=== PATIENT | male | born 1990 | race African-American/Black ===

== ENCOUNTER 2019-07-21 08:36 | Emergency (ER) | payer MEDICAID ==
[~2019-07-21] VITALS: Ht 177.8 cm; Wt 86.2 kg
[2019-07-21 08:50] VITALS: BP 146/83
== END 2019-07-21 09:53 | disposition home or self-care (01) ==
LOC: ER 08:40
DX: S06.9X9A Unspecified intracranial injury with loss of consciousness of unspecified duration, initial encounter (principal); F17.210 Nicotine dependence, cigarettes, uncomplicated; W22.8XXA Striking against or struck by other objects, initial encounter; Y93.89 Activity, other specified; Y92.149 Unspecified place in prison as the place of occurrence of the external cause; Y99.8 Other external cause status
CPT/HCPCS: 70450

== ENCOUNTER 2021-03-13 18:47 | Emergency (ER) | payer MEDICAID ==
[~2021-03-13] VITALS: Ht 182.9 cm; Wt 97.5 kg
[2021-03-13 22:18] LABS: Basophils # (auto) 0 10 ^3/uL (0-0.2); Basophils % (auto) 0.6 % (0.0-2.0); Eosinophils # (auto) 0.1 10 ^3/uL (0-0.8); Eosinophils % (auto) 0.8 % (0.0-7.0); Hematocrit 43.6 % (41.0-53.0); Hemoglobin 14.9 g/dL (13.5-17.5); Lymphocytes # (auto) 2.2 10 ^3/uL (0.4-5.4); Lymphocytes % (auto) 33.4 % (10.0-50.0); Mean Corpuscular Hemoglobin 31.3 pg (28.0-32.0); Mean Corpuscular Hgb Conc. 34.1 g/dL (32.0-36.0); Mean Corpuscular Volume 91.8 fL (80.0-100.0); Monocytes # (auto) 0.5 10 ^3/uL (0-1.3); Monocytes % (auto) 6.8 % (0.0-12.0); Neutrophils # (auto) 3.9 10 ^3/uL (1.6-8.6); Neutrophils % (auto) 58.4 % (37.0-80.0); Nucleated Red Blood Cells % 0.1 %; Platelet Count (auto) 307 10^3/uL (140-450); Red Blood Cells 4.75 10^6/uL (4.5-5.90); Red Cell Distribution Width 13.2 % (11.8-14.3); White Blood Cell 6.7 10^3/uL (4.4-10.8)
[2021-03-13 22:39] LABS: Alanine Aminotransferase 51 U/L (16-61); Anion Gap 7 (5-15); Aspartate Aminotransferase 32 U/L (15-37); BUN/Creatinine Ratio 6.5; Blood Alcohol < 3.0 mg/dL (0-5); Blood Urea Nitrogen 9 mg/dL (7-18); Calcium 8.8 mg/dL (8.5-10.1); Carbon Dioxide 29 mmol/L (21-32); Chloride 103 mmol/L (98-107); GFR African American 78 mL/min; GFR Non-African American 64 mL/min; Glucose 141 mg/dL (74-106); Magnesium 2.5 mg/dL (1.6-2.6); Potassium 3.1 mmol/L (3.5-5.1); Sodium 139 mmol/L (136-145)
[2021-03-13 22:40] LABS: Salicylate < 1.7 mg/dL (2.8-20.0)
[2021-03-13 22:42] LABS: Alkaline Phosphatase 99 U/L (45-117); Bilirubin, Total 1.2 mg/dL (0.2-1.0); Total Protein 7.6 g/dL (6.4-8.2)
[2021-03-13 22:58] LABS: Acetaminophen < 2.0 ug/mL (10-30)
[2021-03-14 02:01] VITALS: BP 152/98
[2021-03-14 02:03] LABS: Urine Bacteria NONE SEEN /hpf (None Seen); Urine Blood Negative /uL (Negative); Urine Hyaline Cast FEW /lpf (0 - 2); Urine Mucus FEW (None Seen); Urine WBC 5 /hpf (0 - 3)
[2021-03-14] MEDS ORDERED: LORazepam 0.5 MG TAB PO ONE (05:15)
[2021-03-14 05:57] LABS: Amphetamine Screen, Urine POSITIVE (NEGATIVE); Barbiturate Scree,Urine NEGATIVE (NEGATIVE); Benzodiazephine Screen, Urine POSITIVE (NEGATIVE); Cannabinoid Screen, Urine POSITIVE (NEGATIVE); Cocaine Screen, Urine NEGATIVE (NEGATIVE); Opiate Scree,Urine NEGATIVE (NEGATIVE); Phencyclidine Screen, Urine NEGATIVE (NEGATIVE)
[2021-03-14] MEDS ORDERED: AMMONIA 0.33 ML INHALANT IN ONE (09:41)
[2021-03-14] MEDS ORDERED: FLUMAZENIL 0.1 MG/ML INJ 10ML MDV IV ONE (09:46)
== END 2021-03-14 06:18 | disposition still patient (30) ==
LOC: EDBD 18:47 → ER 18:47
DX: R46.89 Other symptoms and signs involving appearance and behavior (principal); R41.82 Altered mental status, unspecified; R45.1 Restlessness and agitation; F41.9 Anxiety disorder, unspecified; F31.9 Bipolar disorder, unspecified; F20.9 Schizophrenia, unspecified; Z20.822 Contact with and (suspected) exposure to COVID-19; Z59.0 Homelessness
CPT/HCPCS: 36415; 80053; 80307; 80320; 80329; 81001; 83735; 85025; 85049; 87426

== ENCOUNTER 2021-03-14 09:17 | Emergency (ER) | payer MEDICAID ==
[~2021-03-14] VITALS: Ht 182.9 cm; Wt 113.4 kg
[2021-03-14 09:41] VITALS: BP 152/88
[2021-03-14] MEDS ORDERED: FLUMAZENIL 0.1 MG/ML INJ 10ML MDV IV ONE (10:00)
[2021-03-14] MEDS ORDERED: SODIUM CHLORIDE 0.9% 1,000 ML IV ONE (10:00)
[2021-03-14 10:01] LABS: Basophils # (auto) 0.1 10 ^3/uL (0-0.2); Basophils % (auto) 1.6 % (0.0-2.0); Eosinophils # (auto) 0.1 10 ^3/uL (0-0.8); Hematocrit 39.4 % (41.0-53.0); Hemoglobin 13.5 g/dL (13.5-17.5); Lymphocytes # (auto) 1.5 10 ^3/uL (0.4-5.4); Lymphocytes % (auto) 32.6 % (10.0-50.0); Mean Corpuscular Hemoglobin 31.2 pg (28.0-32.0); Mean Corpuscular Hgb Conc. 34.3 g/dL (32.0-36.0); Mean Corpuscular Volume 90.9 fL (80.0-100.0); Monocytes # (auto) 0.3 10 ^3/uL (0-1.3); Monocytes % (auto) 5.5 % (0.0-12.0); Neutrophils # (auto) 2.8 10 ^3/uL (1.6-8.6); Neutrophils % (auto) 58.3 % (37.0-80.0); Nucleated Red Blood Cells % 0.1 %; Red Blood Cells 4.33 10^6/uL (4.5-5.90); Red Cell Distribution Width 12.6 % (11.8-14.3); White Blood Cell 4.7 10^3/uL (4.4-10.8)
[2021-03-14 10:27] LABS: Calcium 8.5 mg/dL (8.5-10.1); Chloride 105 mmol/L (98-107); Potassium 3.5 mmol/L (3.5-5.1); Sodium 139 mmol/L (136-145)
[2021-03-14 10:33] LABS: Alanine Aminotransferase 45 U/L (16-61); Albumin 3.6 g/dL (3.4-5.0); Alkaline Phosphatase 88 U/L (45-117); Anion Gap 5 (5-15); Aspartate Aminotransferase 32 U/L (15-37); Bilirubin, Total 0.6 mg/dL (0.2-1.0); Blood Alcohol < 3.0 mg/dL (0-5); Blood Urea Nitrogen 15 mg/dL (7-18); Carbon Dioxide 29 mmol/L (21-32); GFR African American 96 mL/min; GFR Non-African American 79 mL/min; Glucose 106 mg/dL (74-106); Total Protein 6.9 g/dL (6.4-8.2)
== END 2021-03-14 10:09 | disposition left against medical advice (07) ==
LOC: EDBD 09:17 → ER 09:17
DX: G93.41 Metabolic encephalopathy (principal); F17.210 Nicotine dependence, cigarettes, uncomplicated
CPT/HCPCS: 36415; 80053; 80320; 85025; 85049; 96374; 99283; J7030

== ENCOUNTER 2024-11-13 01:21 | Inpatient (IN) | payer MEDICAID ==
[2024-11-13] VITALS (7 sets, daily range): BP systolic 129–136; BP diastolic 75–93; PULSE 75–86; RESP 15–18; TEMP 97.5–98.1; O2SAT 95–99
[~2024-11-13] VITALS: Ht 175.3 cm; Wt 87.5 kg
--- NOTE | 2024-11-13 03:10 | ED.PDOC ---
History of Present Illness HPI Comments 34 year old male who came to ER for dizziness. Patient is homeless, has history of anxiety, depression and schizophrenia. Has history of methamphetamine abuse. States for the past 2 hours he has been feeling dizzy with blurred vision and generalized weakness. Patient states he was asleep when he woke up suddenly feeling like this. Patient could not recall what happened earlier. He denies any recent drug or alcohol use. Chief Complaint: Dizziness Time Seen by MD: 03:09 Primary Care Provider: DARIO Reviewed Notes: Nurses Notes Allergies: Coded Allergies: UNOBTAINABLE (Unverified , 03/13/21) Information Source: Patient Mode of Arrival: Ambulatory Severity: Moderate Review of Systems REVIEW OF SYSTEMS: No fever, no chills, or fatigue HEENT: No sore throat, no earache, no congestion, no neck pain. Cardiac: No chest pain. No palpitations. Lungs: No shortness of breath, no cough. GI: No nausea, no vomiting, no diarrhea, no constipation, no abdominal pain : No dysuria, frequency, or urgency. No hematuria. Musculoskeletal: No joint pain , no joint swelling, no extremity edema. Skin: No rash, no itching. Neuro: No headache, (+) dizziness, (+) weakness Vital Signs Vital Signs Date Time Temp Pulse Resp B/P (MAP) Pulse Ox O2 Delivery O2 Flow Rate FiO2 11/13/24 05:08 16 95 Room Air* 0 21 11/13/24 05:00 82 144/94 (111) 11/13/24 04:31 97.3 97.3 Physical Exam General: Patient is speaking, slowly with slow/ slurred speech. He responds to verbal stimulation. Skin: Skin in warm, dry and intact. Appropriate color for ethnicity. Nailbeds pink with no cyanosis. HEENT: The head is normocephalic and atraumatic. Conjunctivae are clear without exudates or hemorrhage. Sclera is non-icteric. PERRLA. EOM are intact. No signs of nystagmus. Eyelids are normal in appearance without swelling or lesions. Oral mucosa is pink and moist Neck: The neck is supple with normal range of motion. No JVD. Cardiac: Heart rate and rhythm are normal. No murmurs, gallops, or rubs are auscultated. Respiratory: No signs of respiratory distress. Lung sounds are clear in all lobes bilaterally without rales, ronchi, or wheezes. Abdominal: Abdomen is soft, non-tender without distention. Bowel sounds are present and normoactive in all four quadrants. Extremities: Upper and lower extremities are atraumatic in appearance without deformity or edema. Neurological: The patient is awake, alert and oriented to person, place, and time with slow/slurred speech. Speech is easy to understand. There is no facial asymmetry. Patient is reporting generalized weakness stating he can not move his arms or legs however he was noted to ambulate to the registration desk in the lobby. Psychiatric: Appropriate mood and affect. Good judgement and insight. No visual or auditory hallucinations. Past Medical History PAST MEDICAL HISTORY: Anxiety, Depression, Schizophrenia Surgical History: Pt Confused Family History Family History: Pt Confused Social History Smoker: Cigarettes, Less Than 1 Pack/Day Alcohol: Occasionally Drugs: Methamphetamine Lives In: Homeless Was a procedure done? Was a procedure done?: No Differential Dx Considerations may include: Anemia, electrolyte imbalance, dehydration, substance abuse, homeless X-Ray, Labs, Meds, VS Vital Signs Date Time Temp Pulse Resp B/P (MAP) Pulse Ox O2 Delivery O2 Flow Rate FiO2 11/13/24 05:08 16 95 Room Air* 0 21 11/13/24 05:00 82 144/94 (111) 11/13/24 04:40 100 150/101 11/13/24 04:31 97.3 84 16 165/104 (124) 93 97.3 11/13/24 04:30 83 11/13/24 03:20 85 11/13/24 03:06 99.4 84 12 159/115 (130) 96 Lab Test 11/13/24 04:50 11/13/24 03:26 11/13/24 02:32 Range/Units Urine Color Yellow Yellow Urine Clarity Clear Clear Urine pH 5.5 5.0-9.0 Urine Specific [place] 1.028 1.001-1.035 Urine Protein Trace H Negative Urine Ketones 2+ H Negative Urine Blood Negative Negative /uL Urine Nitrite Negative Negative Urine Bilirubin Negative Negative Urine Urobilinogen Normal Negative mg/dL Urine Leukocyte Esterase Negative Negative /uL Urine RBC 1 0 - 3 /hpf Urine Microscopic WBC < 1 0-3 /HPF Urine Squamous Epithelial Cells None seen <5 /hpf Urine Bacteria None seen None Seen /hpf Urine Mucus Few None Seen Urine Glucose Normal Normal mg/dL Urine Opiates Screen Neg NEGATIVE Urine Fentanyl Screen Neg NEGATIVE Urine Barbiturates Screen Neg NEGATIVE Urine Phencyclidine Screen Neg NEGATIVE Urine Amphetamines Screen Pos NEGATIVE Urine Benzodiazepines Screen Neg NEGATIVE Urine Cocaine Screen Neg NEGATIVE Urine Cannabinoids Screen Pos NEGATIVE White Blood Count 6.9 4.4-10.8 10^3/uL Red Blood Count 4.93 4.5-5.90 10^6/uL Hemoglobin 15.2 13.5-17.5 g/dL Hematocrit 44.7 41.0-53.0 % Mean Corpuscular Volume 90.7 80.0-100.0 fL Mean Corpuscular Hemoglobin 30.9 28.0-32.0 pg Mean Corpuscular Hemoglobin Concent 34.1 32.0-36.0 g/dL Red Cell Distribution Width 13.1 11.8-14.3 % Platelet Count 308 140-450 10^3/uL Mean Platelet Volume 8.0 6.9-10.8 fL Neutrophils (%) (Auto) 64.8 37.0-80.0 % Lymphocytes (%) (Auto) 25.4 10.0-50.0 % Monocytes (%) (Auto) 8.0 0.0-12.0 % Eosinophils (%) (Auto) 1.2 0.0-7.0 % Basophils (%) (Auto) 0.6 0.0-2.0 % Neutrophils # (Auto) 4.5 1.6-8.6 10 ^3/uL Lymphocytes # (Auto) 1.8 0.4-5.4 10 ^3/uL Monocytes # (Auto) 0.6 0-1.3 10 ^3/uL Eosinophils # (Auto) 0.1 0-0.8 10 ^3/uL Basophils # (Auto) 0 0-0.2 10 ^3/uL Nucleated Red Blood Cells 0.0 % Sodium Level 137 136-145 mmol/L Potassium Level 3.5 3.5-5.1 mmol/L Chloride Level 102 98-107 mmol/L Carbon Dioxide Level 27 20-31 mmol/L Anion Gap 8 5-15 Blood Urea Nitrogen 12 9-23 mg/dL Creatinine 0.87 0.700-1.30 mg/dL Glomerular Filtration Rate Calc 116 >90 mL/min BUN/Creatinine Ratio 13.8 10.0-20.0 Serum Glucose 84 74-106 mg/dL Lactic Acid Level 2.1 *H 0.4-2.0 mmol/L Calcium Level 10.3 8.7-10.4 mg/dL Magnesium Level 2.4 1.6-2.6 mg/dL Total Bilirubin 1.4 H 0.2-1.0 mg/dL Aspartate Amino Transferase (AST) 47 H 13-40 U/L Alanine Aminotransferase (ALT) 29 7-40 U/L Alkaline Phosphatase 87 46-116 U/L Creatine Kinase 801 H 46-171 U/L Troponin I High Sensitivity 6 </=54 ng/L Total Protein 8.2 5.7-8.2 g/dL Albumin 5.4 H 3.2-4.8 g/dL Thyroid Stimulating Hormone (TSH) 3.44 0.55-4.78 uIU/mL Plasma/Serum Blood Alcohol < 3.0 <10 mg/dL Blood Gas Specimen Type Arterial Blood Gas Sample Site Right radial Blood Gas Patient Temperature 37.0 Arterial Blood Date Drawn [id number] Arterial Blood pH 7.441 7.350-7.450 Arterial Blood Partial Pressure CO2 37.5 35.0-48.0 mmHg Arterial Blood Partial Pressure O2 87.3 83.0-108.0 mmHg Arterial Blood HCO3 25.0 21.0-28.0 mmol/L Arterial Blood Oxygen Saturation 96.6 94.0-98.0 % Arterial Blood Base Excess 1.1 -2.0-3.0 mmol/L Arterial Blood Oxyhemoglobin 93.1 L 94.0-98.0 % Arterial Blood Carboxyhemoglobin 3.0 H 0.5-1.5 % Arterial Blood Methemoglobin 0.6 0.0-1.5 % Howard Test Yes Blood Gas Total Hemoglobin 15.50 13.5-17.5 g/dL Blood Gas Modality Room air FiO2 % 21.0 Blood Gas Comments Current Medications Medications (Trade) Dose Ordered Sig/[place] Route Start Time Stop Time Status Last Admin Labetalol HCl (Labetalol HCl) 10 mg ONCE ONCE IV 11/13/24 02:00 11/13/24 03:00 DC 11/13/24 04:40 Sodium Chloride 1,000 ml @ 1,000 mls/hr Q1H ONCE IV 11/13/24 04:45 11/13/24 05:44 DC 11/13/24 04:41 EXAM: CT HEAD WITHOUT CONTRAST INDICATION: Altered mental status TECHNIQUE: CT of the head without intravenous contrast. Radiation Dose : 1. Head: CT Dose: CTDI volume is 66.4 mGy. Dose-length product is 1308 mGy*cm The dose indicators for CT are the volume Computed Tomography (CT) Dose Index (CTDIvol) and the Dose Length Product (DLP), and are measured in units of mGy and mGy-cm, respectively. These indicators are not patient dose, but values generated from the CT scanner acquisition factors. The report includes radiation exposure data for exposures received during this examination. COMPARISON: None FINDINGS: There is no evidence of acute intracranial hemorrhage, extra-axial collection, mass effect, midline shift, herniation or hydrocephalus. The ventricles, sulci and cisterns are age appropriate. The hale-white differentiation is intact. The visualized paranasal sinuses and mastoid air cells are clear. No calvarium fracture. Mild soft tissue swelling at the vertex. IMPRESSION: 1. No acute intracranial abnormality. CHEST RADIOGRAPH Indication: Altered mental status Technique: Single frontal view of the chest was obtained COMPARISON: None FINDINGS: Lines and Tubes: None Lungs: Clear Pleura: No effusion. No pneumothorax. Cardiomediastinal contours: Unremarkable Bones: Unremarkable IMPRESSION: 1. No acute disease. Time of 1ST Reevaluation: 01:57 Reevaluation 1ST: Unchanged Patient Education/Counseling: Diagnosis, Treatment Family Education/Counseling: No Family Present Departure 1 Departure Time of Disposition: 04:44 Impression: Primary Impression: Altered mental status Additional Impressions: Lactic acidemia Hypertensive urgency Disposition: 09 ADMITTED INPATIENT Condition: Stable Comments 34-year-old male who presents to the emergency department with generalized weakness, altered mental status. Workup reveals lactic acidemia. Tox screen positive for amphetamines and cannabis. Blood pressure was significantly elevated, treated with labetalol. IV fluids administered. Patient admitted for further treatment, evaluation and monitoring. Extensive evaluation was performed in attempt to identify or rule out: (See differential diagnosis section) The following tests were ordered, and results were reviewed by me: (See diagnostic results section) The following test were independently interpreted by me: EKG I reviewed and agreed with the following test results read by other providers: Chest x-ray, CTA Additional information was gathered from interviewing the following independent historians: N/A Discussion of management or test interpretation with external physician/other qualified health resident care aide: N/A Decision regarding hospitalization or escalation of hospital level of care: Risks and benefits of admission for further treatment of patient's condition was considered however due to patient's stable condition patient will be discharged to follow up closely or return to care for worsening of condition or inability to follow up. Critical Care Note Critical Care Time?: No Stability Stability form required: No Heart Score Heart Score: Heart Score Response (Comments) Value History N/A 0 EKG N/A 0 Age N/A 0 Risk Factors N/A 0 Troponin N/A 0 Total 0 I personally scribed for WILLIAM DUMONT MD ([email or web address]) on 11/13/24 at 03:10. Electronically submitted by Maciel De La Paz ([email or web address]). I personally scribed for WILLIAM DUMONT MD ([email or web address]) on 11/13/24 at 04:13. Electronically submitted by Maciel De La Paz ([email or web address]). WILLIAM DUMONT MD Nov 13, 2024 03:10
--- NOTE | 2024-11-13 03:23 | DVH ---
CHEST RADIOGRAPH Indication: Altered mental status Technique: Single frontal view of the chest was obtained COMPARISON: None FINDINGS: Lines and Tubes: None Lungs: Clear Pleura: No effusion. No pneumothorax. Cardiomediastinal contours: Unremarkable Bones: Unremarkable IMPRESSION: 1. No acute disease.
--- NOTE | 2024-11-13 03:23 | DVH ---
EXAM: CT HEAD WITHOUT CONTRAST INDICATION: Altered mental status TECHNIQUE: CT of the head without intravenous contrast. Radiation Dose : 1. Head: CT Dose: CTDI volume is 66.4 mGy. Dose-length product is 1308 mGy*cm The dose indicators for CT are the volume Computed Tomography (CT) Dose Index (CTDIvol) and the Dose Length Product (DLP), and are measured in units of mGy and mGy-cm, respectively. These indicators are not patient dose, but values generated from the CT scanner acquisition factors. The report includes radiation exposure data for exposures received during this examination. COMPARISON: None FINDINGS: There is no evidence of acute intracranial hemorrhage, extra-axial collection, mass effect, midline s hift, herniation or hydrocephalus. The ventricles, sulci and cisterns are age appropriate. The hale-white differentiation is intact. The visualized paranasal sinuses and mastoid air cells are clear. No calvarium fracture. Mild soft tissue swelling at the vertex. IMPRESSION: 1. No acute intracranial abnormality. Radiation optimization: All CT scans at this facility use at least one of these dose optimization bennie hniques: automated exposure control mA and/or kV adjustment per patient size (includes targeted exam s where dose is matched to clinical indication) or iterative reconstruction.
[2024-11-13 03:40] LABS: Basophils # (auto) 0 10 ^3/uL (0-0.2); Basophils % (auto) 0.6 % (0.0-2.0); Eosinophils # (auto) 0.1 10 ^3/uL (0-0.8); Eosinophils % (auto) 1.2 % (0.0-7.0); Hematocrit 44.7 % (41.0-53.0); Hemoglobin 15.2 g/dL (13.5-17.5); Lymphocytes # (auto) 1.8 10 ^3/uL (0.4-5.4); Lymphocytes % (auto) 25.4 % (10.0-50.0); Mean Corpuscular Hemoglobin 30.9 pg (28.0-32.0); Mean Corpuscular Hgb Conc. 34.1 g/dL (32.0-36.0); Mean Corpuscular Volume 90.7 fL (80.0-100.0); Monocytes # (auto) 0.6 10 ^3/uL (0-1.3); Neutrophils # (auto) 4.5 10 ^3/uL (1.6-8.6); Neutrophils % (auto) 64.8 % (37.0-80.0); Platelet Count (auto) 308 10^3/uL (140-450); Red Blood Cells 4.93 10^6/uL (4.5-5.90); Red Cell Distribution Width 13.1 % (11.8-14.3); White Blood Cell 6.9 10^3/uL (4.4-10.8)
[2024-11-13 03:56] LABS: Base Excess 1.1 mmol/L (-2.0-3.0)
[2024-11-13 04:13] LABS: Alanine Aminotransferase 29 U/L (7-40); Alkaline Phosphatase 87 U/L (46-116); Anion Gap 8 (5-15); BUN/Creatinine Ratio 13.8 (10.0-20.0); Blood Urea Nitrogen 12 mg/dL (9-23); Calcium 10.3 mg/dL (8.7-10.4); Carbon Dioxide 27 mmol/L (20-31); Chloride 102 mmol/L (98-107); Glucose 84 mg/dL (74-106); Magnesium 2.4 mg/dL (1.6-2.6); Potassium 3.5 mmol/L (3.5-5.1); Sodium 137 mmol/L (136-145); Total Protein 8.2 g/dL (5.7-8.2)
[2024-11-13 04:32] LABS: Albumin 5.4 g/dL (3.2-4.8); Aspartate Aminotransferase 47 U/L (13-40); Bilirubin, Total 1.4 mg/dL (0.2-1.0); Blood Alcohol < 3.0 mg/dL (<10); Creatine Kinase IFCC 801 U/L (46-171)
[2024-11-13 04:34] LABS: Lactic Acid w/Reflex 2.1 mmol/L (0.4-2.0)
--- NOTE | 2024-11-13 04:38 | ECG ---
[facility] Test Date: 2024-11-13 Test Time: 03:19:29 Pat Name: KIMMIE POWELL Department: Room: Gender: M [employer] Installer: SOHA : 1990 Requested By: WILLIAM DUMONT Order Number: [id number] Reading MD: Measurements Intervals [place] Rate: 85 P: 27 WV: 151 QRS: 13 QRSD: 86 T: -2 QT: 377 QTc: 449 Interpretive Statements Sinus rhythm Borderline T abnormalities, anterior leads Please click the below link to view image of tracing.
[2024-11-13] MEDS: LABETALOL HCL 20 MG/4 ML VL IV ONE (04:40)
[2024-11-13] MEDS: SODIUM CHLORIDE 0.9% 1,000 ML IV ONE (04:41)
[2024-11-13 04:56] LABS: Urine Bacteria None Seen /hpf (None Seen)
[2024-11-13 05:13] LABS: Urine Blood Negative /uL (Negative); Urine Clarity Clear (Clear); Urine Color Yellow (Yellow); Urine Mucus FEW (None Seen); Urine Protein, UAD TRACE (Negative); Urine Specific Gravity 1.028 (1.001-1.035); Urine Squamous Epithelial Cell None Seen /hpf (<5); Urine Urobilinogen Normal (Negative); Urine WBC < 1 /HPF (0-3); Urine pH 5.5 (5.0-9.0)
[2024-11-13 05:16] LABS: Cannabinoid Screen, Urine Pos (NEGATIVE); Phencyclidine Screen, Urine Neg (NEGATIVE)
[2024-11-13 05:27] LABS: Amphetamine Screen, Urine Pos (NEGATIVE); Barbiturate Scree,Urine Neg (NEGATIVE); Benzodiazephine Screen, Urine Neg (NEGATIVE); Cocaine Screen, Urine Neg (NEGATIVE); Opiate Scree,Urine Neg (NEGATIVE)
[2024-11-13] MEDS ORDERED: LEVE500T3 PO (09:53)
--- NOTE | 2024-11-13 09:58 | DVHHP2 ---
History of Present Illness Reason for Visit: Dizziness History of Present Illness This 34-year-old male with past medical history of anxiety, depression, schizophrenia, amphetamine abuse, and tobacco use presents in the ED with a chief complaint of dizziness associated with blurry vision and generalized weakness a few hours prior to ER arrival. The patient is alert and oriented, denies syncope, headaches, chest pain, shortness of breath, or other acute symptoms. Past Medical History As stated in HPI Past Surgical History Denies Family History Reviewed, non-contributory to the management of this case. Past Social History Admits to tobacco use Admits to amphetamine abuse Review of Systems Constitutional: Yes: Malaise; No: Fever, Chills, Sweats, Weakness, Other Eyes: No: Pain, Vision change, Conjunctivae inflammation, Eyelid inflammation, Other, Redness ENT: No: Ear pain, Ear discharge, Nose pain, Nose discharge, Nose congestion, Mouth pain, Mouth swelling, Throat pain, Throat swelling, Other Respiratory: No: Cough, Dry, Shortness of breath, SOB with excertion, Wheezing, Hemoptysis, Pleuritic Pain, Sputum, Wheezing, Other Gastrointestinal: No: Nausea, Vomiting, Abdominal Pain, Diarrhea, Constipation, Melena, Hematochezia, Other Genitourinary: No Dysuria, No Frequency, No Incontinence, No Hematuria, No Retention, No Other Musculoskeletal: No: other, neck pain, shoulder pain, arm pain, back pain, hand pain, leg pain, foot pain Skin: No: Rash, Lesions, Jaundice, Bruising, Other Neurological: Other (Dizziness); No: Weakness, Numbness, Incoordination, Change in speech, Confusion, Seizures Allergies: Coded Allergies: UNOBTAINABLE (Unverified , 03/13/21) Exam Vital Signs Vital Signs Date Time Temp Pulse Resp B/P (MAP) Pulse Ox O2 Delivery O2 Flow Rate FiO2 11/13/24 08:25 77 15 98 Room Air* 0 21 11/13/24 08:15 145/99 (114) 11/13/24 07:00 98.0 98.0 General Appearance: Alert, Oriented X3, Cooperative HEENT: Atraumatic, PERRLA, EOMI, Mucous membr. moist/pink Respiratory: Clear to auscultation, Normal air movement Cardiovascular: Regular rate, Normal S1, Normal S2 Abdominal: Normal bowel sounds, No tenderness, No hepatospenomegaly Extremities: No clubbing, No cyanosis, No edema, Normal pulses Skin: No rashes, No breakdown, No significant lesion Neuro: Normal gait, Normal tone Psych/Mental Status: Mental status NL Labs/Xrays Labs Test 11/13/24 05:31 11/13/24 04:50 11/13/24 03:26 11/13/24 02:32 Range/Units Lactic Acid Level 1.4 0.4-2.0 mmol/L Urine Color Yellow Yellow Urine Clarity Clear Clear Urine pH 5.5 5.0-9.0 Urine Specific [place] 1.028 1.001-1.035 Urine Protein Trace H Negative Urine Ketones 2+ H Negative Urine Blood Negative Negative /uL Urine Nitrite Negative Negative Urine Bilirubin Negative Negative Urine Urobilinogen Normal Negative mg/dL Urine Leukocyte Esterase Negative Negative /uL Urine RBC 1 0 - 3 /hpf Urine Microscopic WBC < 1 0-3 /HPF Urine Squamous Epithelial Cells None seen <5 /hpf Urine Bacteria None seen None Seen /hpf Urine Mucus Few None Seen Urine Glucose Normal Normal mg/dL Urine Opiates Screen Neg NEGATIVE Urine Fentanyl Screen Neg NEGATIVE Urine Barbiturates Screen Neg NEGATIVE Urine Phencyclidine Screen Neg NEGATIVE Urine Amphetamines Screen Pos NEGATIVE Urine Benzodiazepines Screen Neg NEGATIVE Urine Cocaine Screen Neg NEGATIVE Urine Cannabinoids Screen Pos NEGATIVE White Blood Count 6.9 4.4-10.8 10^3/uL Red Blood Count 4.93 4.5-5.90 10^6/uL Hemoglobin 15.2 13.5-17.5 g/dL Hematocrit 44.7 41.0-53.0 % Mean Corpuscular Volume 90.7 80.0-100.0 fL Mean Corpuscular Hemoglobin 30.9 28.0-32.0 pg Mean Corpuscular Hemoglobin Concent 34.1 32.0-36.0 g/dL Red Cell Distribution Width 13.1 11.8-14.3 % Platelet Count 308 140-450 10^3/uL Mean Platelet Volume 8.0 6.9-10.8 fL Neutrophils (%) (Auto) 64.8 37.0-80.0 % Lymphocytes (%) (Auto) 25.4 10.0-50.0 % Monocytes (%) (Auto) 8.0 0.0-12.0 % Eosinophils (%) (Auto) 1.2 0.0-7.0 % Basophils (%) (Auto) 0.6 0.0-2.0 % Neutrophils # (Auto) 4.5 1.6-8.6 10 ^3/uL Lymphocytes # (Auto) 1.8 0.4-5.4 10 ^3/uL Monocytes # (Auto) 0.6 0-1.3 10 ^3/uL Eosinophils # (Auto) 0.1 0-0.8 10 ^3/uL Basophils # (Auto) 0 0-0.2 10 ^3/uL Nucleated Red Blood Cells 0.0 % Sodium Level 137 136-145 mmol/L Potassium Level 3.5 3.5-5.1 mmol/L Chloride Level 102 98-107 mmol/L Carbon Dioxide Level 27 20-31 mmol/L Anion Gap 8 5-15 Blood Urea Nitrogen 12 9-23 mg/dL Creatinine 0.87 0.700-1.30 mg/dL Glomerular Filtration Rate Calc 116 >90 mL/min BUN/Creatinine Ratio 13.8 10.0-20.0 Serum Glucose 84 74-106 mg/dL Calcium Level 10.3 8.7-10.4 mg/dL Magnesium Level 2.4 1.6-2.6 mg/dL Total Bilirubin 1.4 H 0.2-1.0 mg/dL Aspartate Amino Transferase (AST) 47 H 13-40 U/L Alanine Aminotransferase (ALT) 29 7-40 U/L Alkaline Phosphatase 87 46-116 U/L Creatine Kinase 801 H 46-171 U/L Troponin I High Sensitivity 6 </=54 ng/L Total Protein 8.2 5.7-8.2 g/dL Albumin 5.4 H 3.2-4.8 g/dL Thyroid Stimulating Hormone (TSH) 3.44 0.55-4.78 uIU/mL Plasma/Serum Blood Alcohol < 3.0 <10 mg/dL Blood Gas Specimen Type Arterial Blood Gas Sample Site Right radial Blood Gas Patient Temperature 37.0 Arterial Blood Date Drawn [id number] Arterial Blood pH 7.441 7.350-7.450 Arterial Blood Partial Pressure CO2 37.5 35.0-48.0 mmHg Arterial Blood Partial Pressure O2 87.3 83.0-108.0 mmHg Arterial Blood HCO3 25.0 21.0-28.0 mmol/L Arterial Blood Oxygen Saturation 96.6 94.0-98.0 % Arterial Blood Base Excess 1.1 -2.0-3.0 mmol/L Arterial Blood Oxyhemoglobin 93.1 L 94.0-98.0 % Arterial Blood Carboxyhemoglobin 3.0 H 0.5-1.5 % Arterial Blood Methemoglobin 0.6 0.0-1.5 % Howard Test Yes Blood Gas Total Hemoglobin 15.50 13.5-17.5 g/dL Blood Gas Modality Room air FiO2 % 21.0 Blood Gas Comments PROCEDURE(s): HWOCT - HEAD WITHOUT CONTRAST REASON: Altered mental status ORDER NUMBER(s): [id number], ACCESSION NUMBER(s): [id number] EXAM: CT HEAD WITHOUT CONTRAST INDICATION: Altered mental status TECHNIQUE: CT of the head without intravenous contrast. Radiation Dose : 1. Head: CT Dose: CTDI volume is 66.4 mGy. Dose-length product is 1308 mGy*cm The dose indicators for CT are the volume Computed Tomography (CT) Dose Index (CTDIvol) and the Dose Length Product (DLP), and are measured in units of mGy and mGy-cm, respectively. These indicators are not patient dose, but values generated from the CT scanner acquisition factors. The report includes radiation exposure data for exposures received during this examination. COMPARISON: None FINDINGS: There is no evidence of acute intracranial hemorrhage, extra-axial collection, mass effect, midline shift, herniation or hydrocephalus. The ventricles, sulci and cisterns are age appropriate. The hale-white differentiation is intact. The visualized paranasal sinuses and mastoid air cells are clear. No calvarium fracture. Mild soft tissue swelling at the vertex. IMPRESSION: 1. No acute intracranial abnormality. Radiation optimization: All CT scans at this facility use at least one of these dose optimization techniques: automated exposure control mA and/or kV adjustment per patient size (includes targeted exams where dose is matched to clinical indication) or iterative reconstruction. Assessment/Plan Assessment/Plan # Acute toxic encephalopathy # ?breakthrough seizure #Amphetamine abuse Admit to medical unit CT head with no acute pathology Continue with Keppra Seizure precaution Monitor Counseled on cessation of amphetamine abuse # tobacco use Smoking cessation counseled Nicotine patch # hypertension Amlodipine Hydralazine as needed Monitor # obesity Lifestyle modification counseled with diet, regular exercise, weight loss # depression, anxiety, schizophrenia Continue home meds Medical plan discussed with patient and RN Plan discussed with: Patient My Orders Orders - ROBERT TAFOYA Procedure Category Date Status Time Admit ADMIT 11/13/24 Verified 09:53 Code Status CODE 11/13/24 Verified 09:53 Ondansetron Hcl PHA 11/13/24 Verified (Zofran) 10:00 Date of Service: Nov 13, 2024 Billing Provider: ROBERT TAFOYA Common Visit Codes: [id number] INP/OBS CARE (HIGH) ROBERT TAFOYA Nov 13, 2024 09:58
[2024-11-13] MEDS ORDERED: hydrALAZINE HCL 20 MG/ML VL IV PRN ×2 (10:00→12:45)
[2024-11-13] MEDS ORDERED: ONDANSETRON HCL 4 MG/2 ML VIAL IV PRN (10:00)
[2024-11-13] MEDS: NICOTINE 7MG/24HR TOPICAL PATCH TD SCH (10:38)
[2024-11-13] MEDS: amLODIPine BESYLATE 5 MG TAB PO SCH (10:39)
[2024-11-13] MEDS ORDERED: QUET300T14 PO (16:26)
[2024-11-13] MEDS ORDERED: LORA2TAB89 PO (16:26)
[2024-11-13] MEDS ORDERED: HYDR2.5L4 TOP (16:26)
[2024-11-13] MEDS ORDERED: DIPH50TA9 PO (16:26)
[2024-11-13] MEDS ORDERED: BUPR4MIS SL (16:28)
[2024-11-13] MEDS: NICOTINE 14 MG/24HR TOPICAL PATCH TD ONE (20:39)
[2024-11-13] MEDS: levETIRAcetam 500 MG TAB PO SCH (21:38)
[2024-11-13] MEDS: TEMAZEPAM 15 MG CAP PO ONE (23:12)
[2024-11-14] VITALS (8 sets, daily range): BP systolic 116–136; BP diastolic 68–82; PULSE 71–88; RESP 12–18; TEMP 97.2–97.8; O2SAT 93–98
[2024-11-14 06:28] LABS: Basophils # (auto) 0 10 ^3/uL (0-0.2); Basophils % (auto) 1.1 % (0.0-2.0); Eosinophils # (auto) 0.1 10 ^3/uL (0-0.8); Eosinophils % (auto) 3.5 % (0.0-7.0); Hematocrit 39.1 % (41.0-53.0); Hemoglobin 13.9 g/dL (13.5-17.5); Lymphocytes # (auto) 1.8 10 ^3/uL (0.4-5.4); Lymphocytes % (auto) 54.8 % (10.0-50.0); Mean Corpuscular Hemoglobin 31.8 pg (28.0-32.0); Mean Corpuscular Hgb Conc. 35.6 g/dL (32.0-36.0); Mean Corpuscular Volume 89.3 fL (80.0-100.0); Monocytes # (auto) 0.2 10 ^3/uL (0-1.3); Monocytes % (auto) 7.1 % (0.0-12.0); Neutrophils # (auto) 1.1 10 ^3/uL (1.6-8.6); Neutrophils % (auto) 33.5 % (37.0-80.0); Nucleated Red Blood Cells % 0.1 %; Platelet Count (auto) 244 10^3/uL (140-450); Red Blood Cells 4.38 10^6/uL (4.5-5.90); White Blood Cell 3.3 10^3/uL (4.4-10.8)
[2024-11-14 06:52] LABS: Alanine Aminotransferase 23 U/L (7-40); Albumin 4.4 g/dL (3.2-4.8); Alkaline Phosphatase 69 U/L (46-116); Anion Gap 9 (5-15); Aspartate Aminotransferase 25 U/L (13-40); BUN/Creatinine Ratio 14.3 (10.0-20.0); Bilirubin, Total 1.1 mg/dL (0.2-1.0); Blood Urea Nitrogen 12 mg/dL (9-23); Calcium 9.9 mg/dL (8.7-10.4); Carbon Dioxide 27 mmol/L (20-31); Chloride 103 mmol/L (98-107); Glucose 92 mg/dL (74-106); Potassium 3.6 mmol/L (3.5-5.1); Sodium 139 mmol/L (136-145); Total Protein 6.7 g/dL (5.7-8.2)
[2024-11-14] MEDS ORDERED: HALOPERIDOL 5 MG TAB PO PRN (08:45)
--- NOTE | 2024-11-14 10:00 | DVHPNRES ---
Progress Note Date Seen: Nov 14, 2024 Resident Creating Document: SARAI ALFARO RESIDENT Has the PT tested + for MRSA If YES, has PT been informed?: No Medical Necessity Reason Pt with a Central, PICC or Fol: No Medical Necessity Reason This 34-year-old male with past medical history of anxiety, depression, schizophrenia, amphetamine abuse, and tobacco use presents in the ED with a chief complaint of dizziness associated with blurry vision and generalized weakness a few hours prior to ER arrival. The patient is alert and oriented, denies syncope, headaches, chest pain, shortness of breath, or other acute symptoms. Also patient stated he is being having seizures for the past 5 years, not complaint with medications Admits to tobacco use Admits to amphetamine abuse Objective vital signs Vital Sign Date Time Temp Pulse Resp B/P (MAP) Pulse Ox O2 Delivery O2 Flow Rate FiO2 11/14/24 08:30 97.5 78 12 136/82 (100) 98 97.5 11/13/24 20:00 Room Air* 0 21 Total Intake and Output 11/13/24 11/13/24 11/14/24 15:00 23:00 07:00 Intake Total 1200 ml Output Total 600 ml 500 ml Balance -600 ml 700 ml medications Current Medications Medications Dose Ordered Sig/[place] Route Start Time Stop Time Status Last Admin Dose Admin Ondansetron HCl 4 mg Q4HP PRN IV 11/13/24 10:00 Amlodipine Besylate 10 mg DAILY PO 11/13/24 10:00 11/14/24 08:22 10 MG Hydralazine HCl 10 mg Q6HP PRN IV 11/13/24 10:00 Nicotine 1 patch DAILY TD 11/13/24 10:00 11/14/24 08:26 1 PATCH Levetiracetam 500 mg BID PO 11/13/24 22:00 11/14/24 08:22 500 MG Haloperidol 5 mg [id number] PRN PO 11/14/24 08:45 Examination General: Patient is speaking, slowly with slow speech Skin: Skin in warm, dry and intact. Nailbeds pink with no cyanosis. HEENT: The head is normocephalic and atraumatic. Conjunctivae are clear without exudates or hemorrhage. Sclera is non-icteric. PERRLA. EOM are intact. No signs of nystagmus. Eyelids are normal in appearance without swelling or lesions. Oral mucosa is pink and moist Neck: The neck is supple with normal range of motion. No JVD. Cardiac: Heart rate and rhythm are normal. No murmurs, gallops, or rubs are auscultated. Respiratory: No signs of respiratory distress. Lung sounds are clear in all lobes bilaterally without rales, ronchi, or wheezes. Abdominal: Abdomen is soft, non-tender without distention. Bowel sounds are present and normoactive in all four quadrants. Extremities: Upper and lower extremities are atraumatic in appearance without deformity or edema. Neurological: The patient is awake, alert and oriented to person, place, and time Speech is easy to understand. There is no facial asymmetry. Psychiatric: Appropriate mood and affect. Good judgement and insight. No visual or auditory hallucinations. laboratory and microbiology Laboratory Tests 11/14/24 05:53 Test 11/14/24 05:53 Range/Units Serum Glucose 92 74-106 mg/dL Problem List/Assessment/Plan Problem List/Assessment/Plan A 34y old with PMHx anxiety, depression, schizophrenia, methamphetamine and CBD abuse who came due to dizziness and possible seizure activity Head CT scan: normal Chest x ray: normal CBC normal ABG normal Chemistry: hyperbillirubinemia, elevated lactic acid Tox positive for CBD and meth #Acute metabolic/toxic/hypoxic encephalopathy # ?breakthrough seizure #Amphetamine abuse #CBD abuse #Depression #Anxiety #Schizophrenia #Hypertensive crisis #Transaminits resolved Cardiac diet Neurology consult: patient doesnt f/u with any neurologist and stated new seizure activity 2 days ago Keppra 500 mg BID Amlodipine 10 mg daily Stop Haloperidol 5 mg PO BID Nicotine patch Alprazolam PO PRN for anxiety Case discussed with Dr Pedersen Plan discussed with: Patient, Other My Orders My Orders Orders - SARAI ALFARO Procedure Category Date Status Time * Neurology Consult CONS 11/14/24 Transmitted 08:14 Haloperidol Tablet PHA 11/14/24 In Process (Haldol Tablet) 08:45 Date of Service: Nov 14, 2024 Billing Provider: CODY PEDERSEN MD Common Visit Codes: [id number] INP/OBS CARE(HIGH) SARAI ALFARO Nov 14, 2024 10:00 CODY PEDERSEN MD Nov 14, 2024 18:09
[2024-11-14 10:56] LABS: Hepatitis B Surface Antigen Negative (Negative)
[2024-11-14 11:17] LABS: Hepatitis A Ab IgM Negative; Hepatitis B Core IgM Negative (Negative); Hepatitis C Antibody Negative (Negative)
[2024-11-14] MEDS: ALPRAZolam 0.25 MG TAB PO PRN (16:11)
[2024-11-15] VITALS (8 sets, daily range): BP systolic 111–135; BP diastolic 48–80; PULSE 62–81; RESP 16–20; TEMP 97.6–98.3; O2SAT 6–98
[2024-11-15 06:51] LABS: Basophils # (auto) 0 10 ^3/uL (0-0.2); Basophils % (auto) 0.7 % (0.0-2.0); Eosinophils # (auto) 0.1 10 ^3/uL (0-0.8); Eosinophils % (auto) 3.3 % (0.0-7.0); Hematocrit 38.3 % (41.0-53.0); Hemoglobin 13.4 g/dL (13.5-17.5); Lymphocytes # (auto) 2.1 10 ^3/uL (0.4-5.4); Lymphocytes % (auto) 54.1 % (10.0-50.0); Mean Corpuscular Hemoglobin 31.5 pg (28.0-32.0); Mean Corpuscular Volume 89.9 fL (80.0-100.0); Monocytes # (auto) 0.3 10 ^3/uL (0-1.3); Monocytes % (auto) 7.7 % (0.0-12.0); Neutrophils # (auto) 1.3 10 ^3/uL (1.6-8.6); Neutrophils % (auto) 34.2 % (37.0-80.0); Nucleated Red Blood Cells % 0.1 %; Platelet Count (auto) 242 10^3/uL (140-450); Red Blood Cells 4.26 10^6/uL (4.5-5.90); Red Cell Distribution Width 12.8 % (11.8-14.3); White Blood Cell 3.9 10^3/uL (4.4-10.8)
[2024-11-15 06:54] LABS: Alanine Aminotransferase 18 U/L (7-40); Albumin 4.2 g/dL (3.2-4.8); Alkaline Phosphatase 67 U/L (46-116); Anion Gap 7 (5-15); Aspartate Aminotransferase 19 U/L (13-40); BUN/Creatinine Ratio 17.9 (10.0-20.0); Bilirubin, Total 0.7 mg/dL (0.2-1.0); Blood Urea Nitrogen 15 mg/dL (9-23); Calcium 9.8 mg/dL (8.7-10.4); Carbon Dioxide 27 mmol/L (20-31); Chloride 104 mmol/L (98-107); Glucose 86 mg/dL (74-106); Potassium 3.8 mmol/L (3.5-5.1); Sodium 138 mmol/L (136-145); Total Protein 6.4 g/dL (5.7-8.2)
--- NOTE | 2024-11-15 11:00 | DVHPNRES ---
Progress Note Date Seen: Nov 15, 2024 Resident Creating Document: SARAI ALFARO RESIDENT Has the PT tested + for MRSA If YES, has PT been informed?: No Medical Necessity Reason Pt with a Central, PICC or Fol: No Subjective Review of Systems This 34-year-old male with past medical history of anxiety, depression, schizophrenia, amphetamine abuse, and tobacco use presents in the ED with a chief complaint of dizziness associated with blurry vision and generalized weakness a few hours prior to ER arrival. The patient is alert and oriented, denies syncope, headaches, chest pain, shortness of breath, or other acute symptoms. Also patient stated he is being having seizures for the past 5 years, not complaint with medications Admits to tobacco use Admits to amphetamine abuse Objective vital signs Vital Sign Date Time Temp Pulse Resp B/P (MAP) Pulse Ox O2 Delivery O2 Flow Rate FiO2 11/15/24 09:37 133/78 11/15/24 05:00 98.1 75 18 95 98.1 11/14/24 20:00 Room Air* 0 21 Total Intake and Output 11/14/24 11/14/24 11/15/24 15:00 23:00 07:00 Intake Total 675 ml Balance 675 ml medications Current Medications Medications Dose Ordered Sig/[place] Route Start Time Stop Time Status Last Admin Dose Admin Ondansetron HCl 4 mg Q4HP PRN IV 11/13/24 10:00 Amlodipine Besylate 10 mg DAILY PO 11/13/24 10:00 11/15/24 09:37 10 MG Nicotine 1 patch DAILY TD 11/13/24 10:00 11/14/24 08:26 1 PATCH Levetiracetam 500 mg BID PO 11/13/24 22:00 11/15/24 09:38 500 MG Alprazolam 0.125 mg Q8HP PRN PO 11/14/24 10:00 11/15/24 09:37 0.125 MG Examination General: Patient is speaking, slowly with slow speech Skin: Skin in warm, dry and intact. Nailbeds pink with no cyanosis. HEENT: The head is normocephalic and atraumatic. Conjunctivae are clear without exudates or hemorrhage. Sclera is non-icteric. PERRLA. EOM are intact. No signs of nystagmus. Eyelids are normal in appearance without swelling or lesions. Oral mucosa is pink and moist Neck: The neck is supple with normal range of motion. No JVD. Cardiac: Heart rate and rhythm are normal. No murmurs, gallops, or rubs are auscultated. Respiratory: No signs of respiratory distress. Lung sounds are clear in all lobes bilaterally without rales, ronchi, or wheezes. Abdominal: Abdomen is soft, non-tender without distention. Bowel sounds are present and normoactive in all four quadrants. Extremities: Upper and lower extremities are atraumatic in appearance without deformity or edema. Neurological: The patient is awake, alert and oriented to person, place, and time Speech is easy to understand. There is no facial asymmetry. Psychiatric: Appropriate mood and affect. Good judgement and insight. No visual or auditory hallucinations. laboratory and microbiology Laboratory Tests 11/15/24 05:29 Test 11/15/24 05:29 Range/Units Serum Glucose 86 74-106 mg/dL Microbiology Date/Time Source Procedure Growth Status 11/13/24 11:59 Nose MRSA Screen - Final Complete Problem List/Assessment/Plan Problem List/Assessment/Plan A 34y old with PMHx anxiety, depression, schizophrenia, methamphetamine and CBD abuse who came due to dizziness and possible seizure activity Head CT scan: normal Chest x ray: normal CBC normal ABG normal Chemistry: hyperbillirubinemia, elevated lactic acid Tox positive for CBD and meth #Acute metabolic/toxic/hypoxic encephalopathy # ?breakthrough seizure #Amphetamine abuse #CBD abuse #Depression #Anxiety #Schizophrenia #Hypertensive crisis #Transaminits resolved Cardiac diet Neurology consult: patient doesnt f/u with any neurologist and stated new seizure activity 3 days ago: pending Keppra 500 mg BID Amlodipine 10 mg daily Stop Haloperidol 5 mg PO BID Nicotine patch Alprazolam PO PRN for anxiety Case discussed with Dr Pedersen Plan discussed with: Patient, Other Date of Service: Nov 15, 2024 Billing Provider: CODY PEDERSEN MD Common Visit Codes: [id number] INP/OBS CARE(HIGH) SARAI ALFARO RESIDENT Nov 15, 2024 11:00 CODY PEDERSEN MD Nov 15, 2024 21:57
--- NOTE | 2024-11-15 20:50 | DVHINCON2 ---
Date of service: Nov 15, [address] Kulkarni Reason for Consultation Seizure History of Present Illness Mr. Thomson 34 years old right-handed gentleman with a history of anxiety, depression, schizophrenia, he came to the [facility] on 11/13/2024 with a chief company of recurrent seizure activity. At this time, he is alert and oriented x3, he provided the following history He was late that he had one seizure daily on 11/11/2024, 11/12/2024, 11/13/2024 for 3 hours, 1 hour, 1 hour respectively, he reports company amnesia about his seizure symptoms, but he was said to have shaking all over the body, and somebody called 911 on 11/13/2024 He reports that he has a seizure disorder since 2014, in that he was spells event where he shakes all over body for about 1 hour with company amnesia, and he has had biting to his tongue, and he only remembers 4-5 seizures. He reports a least 9 head injuries with loss of consciousness He reports he was given Keppra after he came to the [facility] UDS, 11/13/2024: Amphetamine, cannabinoids Urinalysis, 11/13/2024: Unremarkable CBC, 11/13/2024: Unremarkable CMP, 11/15/2024: Unremarkable TSH, 11/13/2024: 3.44 CT head, 11/13/2024: No acute intracranial abnormality Past Medical History Anxiety, depression, schizophrenia Past Surgical History No major surgeries Family History: Patient reports no known family medical history. Family History Kidney failure, diabetes Social History He reports that he is not tobacco smoke, he denies a history of alcohol or drug abuse Allergies: Coded Allergies: Peanut Oil (Verified Allergy, Intermediate, 11/13/24) Soyabean Casein Digest Medium (Verified Allergy, Intermediate, 11/13/24) Home Meds Reported Medications Buprenorphine Hcl-Naloxone Hcl (SUBOXONE) 1 Mis Mis, 888 MISC SL TID, MISC 11/13/24 Diphenhydramine Hcl (Diphenhydramine Hcl) 50 Mg Tab, 1 TAB PO PRN, #30 TAB 11/13/24 Hydrocortisone (Topical) (Hydrocortisone) 2.5 % Lot, 1 APPLIC TOP, APPLIC 11/13/24 Quetiapine Fumerate (Seroquel) 300 Mg Tab, 1 TAB PO QPM, #30 TAB 1 Refill 11/13/24 Lorazepam (Ativan) 2 Mg Tab, 1 TAB PO TID, #90 TAB 11/13/24 Levetiracetam (Levetiracetam) 500 Mg Tab, 1 TAB PO BID 11/13/24 Review of Systems As above, the other systems are negative Vital Signs Vital Signs Date Time Temp Pulse Resp B/P (MAP) Pulse Ox O2 Delivery O2 Flow Rate FiO2 11/15/24 17:00 97.6 81 20 131/80 (97) 93 97.6 11/15/24 08:00 Room Air* 0 21 Physical Exam GENERAL EXAM: General: the patient is well developed and nourished. No acute distress. HEENT: Normocephalic, neck is supple, no carotid bruits. No mass. RESPIRATORY: Normal respiratory effort with symmetrical lung expansion. Lungs clear to auscultation. CARDIOVASCULAR: Regular rate and rhythm with no murmurs. S1, S2. ABDOMEN: Soft, nontender, normal bowel sound NEUROLOGICAL: MENTAL STATUS: Awake and alert. Oriented to person, place, time and general circumstances. Able to give personal history. SPEECH, LANGUAGE, HIGHER CORTICAL FUNCTION: no aphasia or dysathria. CRANIAL NERVES: #2: Intact visual gant to confrontation. The optic discs were sharp. #3,4,6: Pupils are equal, round and reactive. EOMs full and conjugate. No nystagmus. #5: Facial sensation intact in all three divisions bilaterally. Mandibular strength intact. #7: Facial muscles symmetrical and strength intact. #8: Hearing grossly normal to voice. #9,10: Uvula and soft palate rise in the midline. Swallow and voice are normal. #11: Trapezius and sternomastoid strength intact bilaterally. #12: Tongue midline. No fasciculations or atrophy. SENSATION: Sensation to touch and pinprick is normal. MOTOR: Normal tone in the upper and lower extremity. Normal muscle bulk. No fasciculations. No abnormal movements or posturing. Muscle strength of the major groups in the upper extremities is 5/5. Muscle strength of the major groups in the lower extremities is 5/5. REFLEXES: Deep tendon reflexes normal and symmetrical. No pathological reflexes. CEREBELLAR/COORDINATION: Finger to nose is normal bilaterally. GAIT/STATION: deferred. Labs/Diagnostic Data Labs Test 3/11/25 05:29 11/14/24 05:53 11/13/24 05:31 11/13/24 04:50 Range/Units White Blood Count 3.9 L 4.4-10.8 10^3/uL Red Blood Count 4.26 L 4.5-5.90 10^6/uL Hemoglobin 13.4 L 13.5-17.5 g/dL Hematocrit 38.3 L 41.0-53.0 % Mean Corpuscular Volume 89.9 80.0-100.0 fL Mean Corpuscular Hemoglobin 31.5 28.0-32.0 pg Mean Corpuscular Hemoglobin Concent 35.0 32.0-36.0 g/dL Red Cell Distribution Width 12.8 11.8-14.3 % Platelet Count 242 140-450 10^3/uL Mean Platelet Volume 8.5 6.9-10.8 fL Neutrophils (%) (Auto) 34.2 L 37.0-80.0 % Lymphocytes (%) (Auto) 54.1 H 10.0-50.0 % Monocytes (%) (Auto) 7.7 0.0-12.0 % Eosinophils (%) (Auto) 3.3 0.0-7.0 % Basophils (%) (Auto) 0.7 0.0-2.0 % Neutrophils # (Auto) 1.3 L 1.6-8.6 10 ^3/uL Lymphocytes # (Auto) 2.1 0.4-5.4 10 ^3/uL Monocytes # (Auto) 0.3 0-1.3 10 ^3/uL Eosinophils # (Auto) 0.1 0-0.8 10 ^3/uL Basophils # (Auto) 0 0-0.2 10 ^3/uL Nucleated Red Blood Cells 0.1 % Sodium Level 138 136-145 mmol/L Potassium Level 3.8 3.5-5.1 mmol/L Chloride Level 104 98-107 mmol/L Carbon Dioxide Level 27 20-31 mmol/L Anion Gap 7 5-15 Blood Urea Nitrogen 15 9-23 mg/dL Creatinine 0.84 0.700-1.30 mg/dL Glomerular Filtration Rate Calc 117 >90 mL/min BUN/Creatinine Ratio 17.9 10.0-20.0 Serum Glucose 86 74-106 mg/dL Calcium Level 9.8 8.7-10.4 mg/dL Total Bilirubin 0.7 0.2-1.0 mg/dL Aspartate Amino Transferase (AST) 19 13-40 U/L Alanine Aminotransferase (ALT) 18 7-40 U/L Alkaline Phosphatase 67 46-116 U/L Total Protein 6.4 5.7-8.2 g/dL Albumin 4.2 3.2-4.8 g/dL Hepatitis A IgM Antibody Negative Hepatitis B Surface Antigen Negative Negative Hepatitis B Core IgM Antibody Negative Negative Hepatitis C Antibody Negative Negative Lactic Acid Level 1.4 0.4-2.0 mmol/L Urine Color Yellow Yellow Urine Clarity Clear Clear Urine pH 5.5 5.0-9.0 Urine Specific Williamson 1.028 1.001-1.035 Urine Protein Trace H Negative Urine Ketones 2+ H Negative Urine Blood Negative Negative /uL Urine Nitrite Negative Negative Urine Bilirubin Negative Negative Urine Urobilinogen Normal Negative mg/dL Urine Leukocyte Esterase Negative Negative /uL Urine RBC 1 0 - 3 /hpf Urine Microscopic WBC < 1 0-3 /HPF Urine Squamous Epithelial Cells None seen <5 /hpf Urine Bacteria None seen None Seen /hpf Urine Mucus Few None Seen Urine Glucose Normal Normal mg/dL Urine Opiates Screen Neg NEGATIVE Urine Fentanyl Screen Neg NEGATIVE Urine Barbiturates Screen Neg NEGATIVE Urine Phencyclidine Screen Neg NEGATIVE Urine Amphetamines Screen Pos NEGATIVE Urine Benzodiazepines Screen Neg NEGATIVE Urine Cocaine Screen Neg NEGATIVE Urine Cannabinoids Screen Pos NEGATIVE Test 11/13/24 03:26 11/13/24 02:32 Range/Units Magnesium Level 2.4 1.6-2.6 mg/dL Creatine Kinase 801 H 46-171 U/L Troponin I High Sensitivity 6 </=54 ng/L Thyroid Stimulating Hormone (TSH) 3.44 0.55-4.78 uIU/mL Plasma/Serum Blood Alcohol < 3.0 <10 mg/dL Blood Gas Specimen Type Arterial Blood Gas Sample Site Right radial Blood Gas Patient Temperature 37.0 Arterial Blood Date Drawn [id number] Arterial Blood pH 7.441 7.350-7.450 Arterial Blood Partial Pressure CO2 37.5 35.0-48.0 mmHg Arterial Blood Partial Pressure O2 87.3 83.0-108.0 mmHg Arterial Blood HCO3 25.0 21.0-28.0 mmol/L Arterial Blood Oxygen Saturation 96.6 94.0-98.0 % Arterial Blood Base Excess 1.1 -2.0-3.0 mmol/L Arterial Blood Oxyhemoglobin 93.1 L 94.0-98.0 % Arterial Blood Carboxyhemoglobin 3.0 H 0.5-1.5 % Arterial Blood Methemoglobin 0.6 0.0-1.5 % Howard Test Yes Blood Gas Total Hemoglobin 15.50 13.5-17.5 g/dL Blood Gas Modality Room air FiO2 % 21.0 Blood Gas Comments Microbiology Date/Time Source Procedure Growth Status 11/13/24 11:59 Nose MRSA Screen - Final Complete Assessment Reports grand mal seizure, with a typical features A least some of his seizures were nonepileptic Plan/Recommendation Monitoring Supportive treatment Telemetry EEG MR brain scan Keppra 500 mg b.i.d. Seizure breakthrough More recommendation per clinical course Progress: Poor This medical document was created using an electronic medical record system with [employer] dictation system. Although this document has been carefully reviewed, there may still be some phonetic and typographical errors. These areas are purely typographical due to imperfections of the software programs, and do not reflect any compromise in the patient's medical care. Plan discussed with: Patient, Other GATITO EDUARDO MD Nov 15, 2024 20:50
[2024-11-15] MEDS ORDERED: LORazepam 2MG/ML-1ML VIAL IV PRN ×2 (21:30)
[2024-11-16 01:00] VITALS: BP 142/80; PULSE 75; RESP 18; TEMP 97.9; O2SAT 98
[2024-11-16 05:00] VITALS: BP 129/85; PULSE 70; RESP 18; TEMP 97.5; O2SAT 98
[2024-11-16 08:00] VITALS: PULSE 77; RESP 16; O2SAT 98
--- NOTE | 2024-11-16 09:08 | DVH ---
EXAMINATION: MRI BRAIN HEAD WO CONTRAST INDICATION: Sz COMPARISON: None TECHNIQUE: Multiplanar, multisequence magnetic resonance imaging of the brain was performed without the use of i ntravenous contrast. FINDINGS: No evidence of acute or remote infarct. No intracranial hemorrhage. No mass effect. There is periventricular/deep white matter T2/FLAIR hyperintensity is nonspecific, but most commonly associated with chronic microvascular disease. The ventricles and sulci are normal in size for age. Clear basal cisterns. Flow voids in the major intracranial vessels are maintained. No abnormality of the orbits. Paranasal sinuses and mastoid air cells are clear. No abnormality of the visualized osseous structures and extracranial soft tissues. IMPRESSION: No acute infarct, intracranial hemorrhage, mass effect, or hydrocephalus.
[2024-11-16 09:13] VITALS: BP 143/68; PULSE 56; RESP 16; TEMP 97.6; O2SAT 93
--- NOTE | 2024-11-16 11:04 | DVHINCON2 ---
Date of Service if different f: Nov 16, 2024 Consultation ([place]) Labs Laboratory Tests Test 11/13/24 02:32 11/13/24 03:26 11/13/24 04:50 11/13/24 05:31 Blood Gas Specimen Type Arterial Blood Gas Sample Site Right radial Blood Gas Patient Temperature 37.0 Arterial Blood Date Drawn [id number] Arterial Blood pH 7.441 (7.350-7.450) Arterial Blood Partial Pressure CO2 37.5 mmHg (35.0-48.0) Arterial Blood Partial Pressure O2 87.3 mmHg (83.0-108.0) Arterial Blood HCO3 25.0 mmol/L (21.0-28.0) Arterial Blood Oxygen Saturation 96.6 % (94.0-98.0) Arterial Blood Base Excess 1.1 mmol/L (-2.0-3.0) Arterial Blood Oxyhemoglobin 93.1 % (94.0-98.0) Arterial Blood Carboxyhemoglobin 3.0 % (0.5-1.5) Arterial Blood Methemoglobin 0.6 % (0.0-1.5) Howard Test Yes Blood Gas Total Hemoglobin 15.50 g/dL (13.5-17.5) Blood Gas Modality Room air FiO2 % 21.0 Blood Gas Comments Magnesium Level 2.4 mg/dL (1.6-2.6) Creatine Kinase 801 U/L (46-171) Troponin I High Sensitivity 6 ng/L (</=54) Thyroid Stimulating Hormone (TSH) 3.44 uIU/mL (0.55-4.78) Plasma/Serum Blood Alcohol < 3.0 mg/dL (<10) Urine Color Yellow (Yellow) Urine Clarity Clear (Clear) Urine pH 5.5 (5.0-9.0) Urine Specific [place] 1.028 (1.001-1.035) Urine Protein Trace (Negative) Urine Ketones 2+ (Negative) Urine Blood Negative /uL (Negative) Urine Nitrite Negative (Negative) Urine Bilirubin Negative (Negative) Urine Urobilinogen Normal mg/dL (Negative) Urine Leukocyte Esterase Negative /uL (Negative) Urine RBC 1 /hpf (0 - 3) Urine Microscopic WBC < 1 /HPF (0-3) Urine Squamous Epithelial Cells None seen /hpf (<5) Urine Bacteria None seen /hpf (None Seen) Urine Mucus Few (None Seen) Urine Glucose Normal mg/dL (Normal) Urine Opiates Screen Neg (NEGATIVE) Urine Fentanyl Screen Neg (NEGATIVE) Urine Barbiturates Screen Neg (NEGATIVE) Urine Phencyclidine Screen Neg (NEGATIVE) Urine Amphetamines Screen Pos (NEGATIVE) Urine Benzodiazepines Screen Neg (NEGATIVE) Urine Cocaine Screen Neg (NEGATIVE) Urine Cannabinoids Screen Pos (NEGATIVE) Lactic Acid Level 1.4 mmol/L (0.4-2.0) Test 11/14/24 05:53 11/15/24 05:29 Hepatitis A IgM Antibody Negative Hepatitis B Surface Antigen Negative (Negative) Hepatitis B Core IgM Antibody Negative (Negative) Hepatitis C Antibody Negative (Negative) White Blood Count 3.9 10^3/uL (4.4-10.8) Red Blood Count 4.26 10^6/uL (4.5-5.90) Hemoglobin 13.4 g/dL (13.5-17.5) Hematocrit 38.3 % (41.0-53.0) Mean Corpuscular Volume 89.9 fL (80.0-100.0) Mean Corpuscular Hemoglobin 31.5 pg (28.0-32.0) Mean Corpuscular Hemoglobin Concent 35.0 g/dL (32.0-36.0) Red Cell Distribution Width 12.8 % (11.8-14.3) Platelet Count 242 10^3/uL (140-450) Mean Platelet Volume 8.5 fL (6.9-10.8) Neutrophils (%) (Auto) 34.2 % (37.0-80.0) Lymphocytes (%) (Auto) 54.1 % (10.0-50.0) Monocytes (%) (Auto) 7.7 % (0.0-12.0) Eosinophils (%) (Auto) 3.3 % (0.0-7.0) Basophils (%) (Auto) 0.7 % (0.0-2.0) Neutrophils # (Auto) 1.3 10 ^3/uL (1.6-8.6) Lymphocytes # (Auto) 2.1 10 ^3/uL (0.4-5.4) Monocytes # (Auto) 0.3 10 ^3/uL (0-1.3) Eosinophils # (Auto) 0.1 10 ^3/uL (0-0.8) Basophils # (Auto) 0 10 ^3/uL (0-0.2) Nucleated Red Blood Cells 0.1 % Sodium Level 138 mmol/L (136-145) Potassium Level 3.8 mmol/L (3.5-5.1) Chloride Level 104 mmol/L (98-107) Carbon Dioxide Level 27 mmol/L (20-31) Anion Gap 7 (5-15) Blood Urea Nitrogen 15 mg/dL (9-23) Creatinine 0.84 mg/dL (0.700-1.30) Glomerular Filtration Rate Calc 117 mL/min (>90) BUN/Creatinine Ratio 17.9 (10.0-20.0) Serum Glucose 86 mg/dL (74-106) Calcium Level 9.8 mg/dL (8.7-10.4) Total Bilirubin 0.7 mg/dL (0.2-1.0) Aspartate Amino Transf (AST/SGOT) 19 U/L (13-40) Alanine Aminotransferase (ALT/SGPT) 18 U/L (7-40) Alkaline Phosphatase 67 U/L (46-116) Total Protein 6.4 g/dL (5.7-8.2) Albumin 4.2 g/dL (3.2-4.8) Microbiology Date/Time Source Procedure Growth Status 11/13/24 11:59 Nose MRSA Screen - Final Complete Appetite: Good Appearance: Stated age, Groomed Psychomotor activity: WNL Behavioral: Cooperative Eye contact: Appropriate Speech: WNL Affect: Mood Congruent Mood: Euthymic Thought processes: Linear/Goal-directed Thought content: WNL Suicidal ideations: Absent Homicidal ideations: Absent Orientation: Person, Place, Time, Situation Memory intact: Recent Intellect: Average Abstractability: WNL Concentration: Adequate Attention: Adequate Judgement: WNL Insight: Fair Vitals Vital Signs Date Time Temp Pulse Resp B/P (MAP) Pulse Ox O2 Delivery O2 Flow Rate FiO2 11/16/24 09:13 97.6 56 16 143/68 (93) 93 97.6 11/16/24 08:00 Room Air* 0 21 Current medications Current Medications Medications Dose Ordered Sig/[place] Route Start Time Stop Time Status Last Admin Dose Admin Ondansetron HCl 4 mg Q4HP PRN IV 11/13/24 10:00 Amlodipine Besylate 10 mg DAILY PO 11/13/24 10:00 11/15/24 09:37 10 MG Nicotine 1 patch DAILY TD 11/13/24 10:00 11/14/24 08:26 1 PATCH Levetiracetam 500 mg BID PO 11/13/24 22:00 11/15/24 22:03 500 MG Alprazolam 0.125 mg Q8HP PRN PO 11/14/24 10:00 11/16/24 04:16 0.125 MG Lorazepam 1 mg Q5MINP PRN IV 11/15/24 21:30 Lorazepam 1 mg ONCE PRN IV 11/15/24 21:30 Medication adjusted: Yes Diagnosis: unspecified psychosis r/o substance-induced, unspecified anxiety, polysubstance use Plan : Patient reports hx of psychosis and polysubstance use. He currently denies suicidal/homicidal ideation. He does not meet criteria for 5150hold at this time and may discharge after medical clearance Recommend to restart seroquel 100mg po qhs, may titrate up to prior dose of 300m g. Start buspirone 15mg po BID Encouraged substance avoidance which can worsen symptoms. History of Present Illness Reason for Consult : medication management HPI : This is a 34-year-old male with prior hx of psychosis, anxiety, and polysubstance, he presented to the hospital for seizure episodes. Patient is evaluated via telepsychiatry. He reports history of hearing and seeing things since age 12. He also began using marijuana at that time. he cannot recall which began first. He began using methamphetamine since 2012. He reports use as a few times per week. He reports hearing and seeing things last a few days ago and was also using methamphetamine at that time. He is unable to report what he saw or heard, he reports that he hears and sees all kinds of stuff. He also reports anxiety type of panic and reports as "all the time." He reports Xanax here has been working well for him. He reports sleep and appetite as very good. He denies feeling hopeless, depressed or anhedonia. He denies suicidal/homicidal ideation. He denies auditory/visual hallucinations or paranoid thoughts. Past Psychiatric History : He reports about 7-8 prior psychiatric admissions. He denies prior suicide attempts. He was prescribed seroquel 300mg in the past which helped with sleep and would like to restart this. He denies current outpatient mental health connection. He reports prior diagnoses of PTSD, anxiety, bipolar, and schizophrenia, Past Medical History : Hx of seizures Social History : He is currently homeless, unemployed. He is single, he has children. He reports hx of meth, marijuana and opiate use. He reports uninten tional fentanyl overdose in Oct 2023. He reports no longer using fentanyl. He does continue to use marijuana and meth, a few times per week. He also uses nicotine. He denies IV drug use. He denies alcohol use. He reports recent incarceration in correction for 8 months and released October 31. He denies any known family history of mental health problems. YARON BRODY DNP Nov 16, 2024 11:04
[2024-11-16] MEDS ORDERED: QUET50TA27 PO (11:30)
[2024-11-16] MEDS ORDERED: QUET100T47 PO (11:30)
[2024-11-16] MEDS ORDERED: QUET300T24 PO (11:30)
[2024-11-16] MEDS ORDERED: BUSP15TA60 PO (11:31)
[2024-11-16] MEDS ORDERED: LEVE500T3 PO (11:31)
--- NOTE | 2024-11-16 11:37 | DVHDSRES ---
Discharge Summary Date of Admission Resident Creating Document: SARAI ALFARO RESIDENT Nov 13, 2024 at 09:53 Date of Discharge: Nov 16, 2024 Admitting Diagnosis altered mental status Labs/Diagnostic Data: Laboratory Results Test 11/15/24 05:29 11/14/24 05:53 11/13/24 05:31 11/13/24 04:50 White Blood Count 3.9 10^3/uL (4.4-10.8) Red Blood Count 4.26 10^6/uL (4.5-5.90) Hemoglobin 13.4 g/dL (13.5-17.5) Hematocrit 38.3 % (41.0-53.0) Mean Corpuscular Volume 89.9 fL (80.0-100.0) Mean Corpuscular Hemoglobin 31.5 pg (28.0-32.0) Mean Corpuscular Hemoglobin Concent 35.0 g/dL (32.0-36.0) Red Cell Distribution Width 12.8 % (11.8-14.3) Platelet Count 242 10^3/uL (140-450) Mean Platelet Volume 8.5 fL (6.9-10.8) Neutrophils (%) (Auto) 34.2 % (37.0-80.0) Lymphocytes (%) (Auto) 54.1 % (10.0-50.0) Monocytes (%) (Auto) 7.7 % (0.0-12.0) Eosinophils (%) (Auto) 3.3 % (0.0-7.0) Basophils (%) (Auto) 0.7 % (0.0-2.0) Neutrophils # (Auto) 1.3 10 ^3/uL (1.6-8.6) Lymphocytes # (Auto) 2.1 10 ^3/uL (0.4-5.4) Monocytes # (Auto) 0.3 10 ^3/uL (0-1.3) Eosinophils # (Auto) 0.1 10 ^3/uL (0-0.8) Basophils # (Auto) 0 10 ^3/uL (0-0.2) Nucleated Red Blood Cells 0.1 % Sodium Level 138 mmol/L (136-145) Potassium Level 3.8 mmol/L (3.5-5.1) Chloride Level 104 mmol/L (98-107) Carbon Dioxide Level 27 mmol/L (20-31) Anion Gap 7 (5-15) Blood Urea Nitrogen 15 mg/dL (9-23) Creatinine 0.84 mg/dL (0.700-1.30) Glomerular Filtration Rate Calc 117 mL/min (>90) BUN/Creatinine Ratio 17.9 (10.0-20.0) Serum Glucose 86 mg/dL (74-106) Calcium Level 9.8 mg/dL (8.7-10.4) Total Bilirubin 0.7 mg/dL (0.2-1.0) Aspartate Amino Transferase (AST) 19 U/L (13-40) Alanine Aminotransferase (ALT) 18 U/L (7-40) Alkaline Phosphatase 67 U/L (46-116) Total Protein 6.4 g/dL (5.7-8.2) Albumin 4.2 g/dL (3.2-4.8) Hepatitis A IgM Antibody Negative Hepatitis B Surface Antigen Negative (Negative) Hepatitis B Core IgM Antibody Negative (Negative) Hepatitis C Antibody Negative (Negative) Lactic Acid Level 1.4 mmol/L (0.4-2.0) Urine Color Yellow (Yellow) Urine Clarity Clear (Clear) Urine pH 5.5 (5.0-9.0) Urine Specific [place] 1.028 (1.001-1.035) Urine Protein Trace (Negative) Urine Ketones 2+ (Negative) Urine Blood Negative /uL (Negative) Urine Nitrite Negative (Negative) Urine Bilirubin Negative (Negative) Urine Urobilinogen Normal mg/dL (Negative) Urine Leukocyte Esterase Negative /uL (Negative) Urine RBC 1 /hpf (0 - 3) Urine Microscopic WBC < 1 /HPF (0-3) Urine Squamous Epithelial Cells None seen /hpf (<5) Urine Bacteria None seen /hpf (None Seen) Urine Mucus Few (None Seen) Urine Glucose Normal mg/dL (Normal) Urine Opiates Screen Neg (NEGATIVE) Urine Fentanyl Screen Neg (NEGATIVE) Urine Barbiturates Screen Neg (NEGATIVE) Urine Phencyclidine Screen Neg (NEGATIVE) Urine Amphetamines Screen Pos (NEGATIVE) Urine Benzodiazepines Screen Neg (NEGATIVE) Urine Cocaine Screen Neg (NEGATIVE) Urine Cannabinoids Screen Pos (NEGATIVE) Test 11/13/24 03:26 11/13/24 02:32 Magnesium Level 2.4 mg/dL (1.6-2.6) Creatine Kinase 801 U/L (46-171) Troponin I High Sensitivity 6 ng/L (</=54) Thyroid Stimulating Hormone (TSH) 3.44 uIU/mL (0.55-4.78) Plasma/Serum Blood Alcohol < 3.0 mg/dL (<10) Blood Gas Specimen Type Arterial Blood Gas Sample Site Right radial Blood Gas Patient Temperature 37.0 Arterial Blood Date Drawn [id number] Arterial Blood pH 7.441 (7.350-7.450) Arterial Blood Partial Pressure CO2 37.5 mmHg (35.0-48.0) Arterial Blood Partial Pressure O2 87.3 mmHg (83.0-108.0) Arterial Blood HCO3 25.0 mmol/L (21.0-28.0) Arterial Blood Oxygen Saturation 96.6 % (94.0-98.0) Arterial Blood Base Excess 1.1 mmol/L (-2.0-3.0) Arterial Blood Oxyhemoglobin 93.1 % (94.0-98.0) Arterial Blood Carboxyhemoglobin 3.0 % (0.5-1.5) Arterial Blood Methemoglobin 0.6 % (0.0-1.5) Howard Test Yes Blood Gas Total Hemoglobin 15.50 g/dL (13.5-17.5) Blood Gas Modality Room air FiO2 % 21.0 Blood Gas Comments Other Laboratory Tests 11/15/24 05:29 Brief Hx & Hospital Course: A 34y old male with a history of anxiety, depression, schizophrenia, amphetamine and cannabinoid abuse, presented to the ED with complaints of dizziness, blurry vision, generalized weakness, and possible seizure activity. He reported having seizures for the past five years but has not been compliant with medications. Neurology was consulted, and MRI of the brain was unremarkable. Psychiatry was also consulted and recommended resuming Quetiapine and Buspirone. The patient's laboratory workup was notable for hyperbilirubinemia and elevated lactic acid, that were trending and now at DC in normal ranges with toxicology positive for methamphetamine and cannabinoids. He was medically stabilized and showed no further seizure activity during hospitalization. Medications at Discharge: Keppra (Levetiracetam) 500 mg PO BID Buspirone 10 mg PO BID Quetiapine 100 mg PO HS Follow-up: Neurology follow-up for continued seizure management. Psychiatry follow-up for medication compliance and mental health stabilization. Encouraged to abstain from substance use and seek addiction support services. DC clinic The patient was stable at discharge with no acute concerns. Consults/Reason for consult neurology due to seizures psych due to schizophrenia Operations or Procedures EXAMINATION: MRI BRAIN HEAD WO CONTRAST INDICATION: Sz COMPARISON: None TECHNIQUE: Multiplanar, multisequence magnetic resonance imaging of the brain was performed without the use of intravenous contrast. FINDINGS: No evidence of acute or remote infarct. No intracranial hemorrhage. No mass effect. There is periventricular/deep white matter T2/FLAIR hyperintensity is nonspecific, but most commonly associated with chronic microvascular disease. The ventricles and sulci are normal in size for age. Clear basal cisterns. Flow voids in the major intracranial vessels are maintained. No abnormality of the orbits. Paranasal sinuses and mastoid air cells are clear. No abnormality of the visualized osseous structures and extracranial soft tissues. IMPRESSION: No acute infarct, intracranial hemorrhage, mass effect, or hydrocephalus. EXAM: CT HEAD WITHOUT CONTRAST INDICATION: Altered mental status TECHNIQUE: CT of the head without intravenous contrast. Radiation Dose : 1. Head: CT Dose: CTDI volume is 66.4 mGy. Dose-length product is 1308 mGy*cm The dose indicators for CT are the volume Computed Tomography (CT) Dose Index (CTDIvol) and the Dose Length Product (DLP), and are measured in units of mGy and mGy-cm, respectively. These indicators are not patient dose, but values generated from the CT scanner acquisition factors. The report includes radiation exposure data for exposures received during this examination. COMPARISON: None FINDINGS: There is no evidence of acute intracranial hemorrhage, extra-axial collection, mass effect, midline shift, herniation or hydrocephalus. The ventricles, sulci and cisterns are age appropriate. The hale-white differentiation is intact. The visualized paranasal sinuses and mastoid air cells are clear. No calvarium fracture. Mild soft tissue swelling at the vertex. IMPRESSION: 1. No acute intracranial abnormality. Condition at Discharge: Stable Final Diagnosis/Problems List #Acute metabolic/toxic/hypoxic encephalopathy # ?breakthrough seizure #Amphetamine abuse #CBD abuse #Depression #Anxiety #Schizophrenia #Hypertensive crisis resolved #Transaminits resolved Discharge Disposition: Home Discharge Instruct/Medications Diet: Regular Activity: Light activity Follow Up/Referral: dc clinic, f/u with neurology and psychiatrist Medications: see prescription: quetiapine 50 mg BID for 2 days then 100 mg BID for 2 days and then 300 mg daily (at night) Discharge Statement: "Patient was advised to return to the ER or call 911 if any headaches, dizziness, shortness of breath, chest pain, abdominal pain, bleeding, fevers, or worsening of medical condition. Patient was counseled about treatment plan, medications, possible side effects, patientverbalized understanding. All questions were answered to the best of my ability. This discharge took greater then 30 minutes in planning, reviewing documentation, counseling the patient, and discussing with other team members." ASSESSMENT ASSESSMENT Assessment breakthorugh seizure Date of Service: Nov 16, 2024 Billing Provider: CODY CERVANTES MD Common Visit Codes: [id number] INP/OBS CARE(HIGH) SARAI ALFARO RESIDENT Nov 16, 2024 11:37 CODY CERVANTES MD Nov 16, 2024 22:10
[2024-11-16 12:31] VITALS: BP 132/78; PULSE 84; RESP 18; TEMP 36.4
[2024-11-16 13:21] VITALS: BP 104/97; PULSE 89; RESP 17; TEMP 98.2; O2SAT 94
== END 2024-11-16 14:15 | disposition home or self-care (01) | DRG 53 ==
LOC: ER 01:21 → OVERFLOW 09:53 → CENTRAL 16:01
PROVIDERS: ADMIT Internal Medicine; ATTEND Emergency Medicine
DX: G40.409 Other generalized epilepsy and epileptic syndromes, not intractable, without status epilepticus (principal); G92.8 Other toxic encephalopathy; G93.1 Anoxic brain damage, not elsewhere classified; F20.9 Schizophrenia, unspecified; E66.9 Obesity, unspecified; F41.9 Anxiety disorder, unspecified; I10 Essential (primary) hypertension; I16.9 Hypertensive crisis, unspecified; F31.9 Bipolar disorder, unspecified; F17.210 Nicotine dependence, cigarettes, uncomplicated; F12.10 Cannabis abuse, uncomplicated; I16.0 Hypertensive urgency; R41.3 Other amnesia; F15.10 Other stimulant abuse, uncomplicated; F43.10 Post-traumatic stress disorder, unspecified; Z71.6 Tobacco abuse counseling; Z59.00 Homelessness unspecified; Z91.010 Allergy to peanuts; Z79.899 Other long term (current) drug therapy; Z56.0 Unemployment, unspecified; Z91.148 Patient's other noncompliance with medication regimen for other reason; Z68.32 Body mass index [BMI] 32.0-32.9, adult; Z83.3 Family history of diabetes mellitus
CPT/HCPCS: 36415; 36600; 70450; 70551; 71045; 80053; 80074; 80307; 80320; 81001; 82550; 82805; 83605; 83735; 84443; 84484; 85025; 87081; 93005; 96361; 96374; G0378

== ENCOUNTER 2024-11-18 02:38 | Emergency (ER) | payer MEDICAID ==
[~2024-11-18] VITALS: Ht 175.3 cm; Wt 104.5 kg
[~2024-11-18 02:38] MED LIST: BUPR4MIS SL; BUSP15TA60 PO; DIPH50TA9 PO; HYDR2.5L4 TOP; LEVE500T3 PO; LORA2TAB89 PO; QUET100T47 PO; QUET300T14 PO; QUET300T24 PO; QUET50TA27 PO
--- NOTE | 2024-11-18 03:22 | ED.PDOC ---
Psychiatric HPI Comments 34 year old male came to ER via EMS for mental; health issues. He was found sitting in the middle of the street and bystanders called EMS. Patient claims he has not taken his home medications yet since his mother is "with holding them" from him. Patient at this time acting confused and disoriented. He denies any recent drug or alcohol use. Patient was just discharged here 2 days ago and was diagnosed with #Acute metabolic/toxic/hypoxic encephalopathy, # ?breakthrough seizure, #Amphetamine abuse, #CBD abuse , #Depression , #Anxiety , #Schizophrenia , #Hypertensive crisis resolved , #Transaminits resolved. At that time he was evaluated by Psychiatry. He has past psychiatric history of PTSD, anxiety, bipolar and schizophrenia. Recommendation was to restart Seroquel 100 mg q.h.s. and to titrate up to 300 mg. Also start buspirone 15 mg b.i.d. The patient himself feels like he has something in his right great toe. On exam there appears to be no acute abnormality of the right great toe. Chief Complaint: Mental Health Time Seen by MD: 03:19 Primary Care Provider: ELIZABETH Keen Notes: Nurses Notes Information Source: Patient Mode of Arrival: EMS Severity: Unable to Care for Self, Unable to Control Self Severity of Pain: Moderate Severity of Mental Status: Moderate Severity of Symptoms: Moderate Timing: Hours Duration: Since onset Presents with: Depression, Anxiety, Unclear Thinking, Bizarre Behavior Review of Systems REVIEW OF SYSTEMS: No fever, no chills, or fatigue HEENT: No sore throat, no earache, no congestion, no neck pain. Cardiac: No chest pain. No palpitations. Lungs: No shortness of breath, no cough. GI: No nausea, no vomiting, no diarrhea, no constipation, no abdominal pain : No dysuria, frequency, or urgency. No hematuria. Musculoskeletal: No joint pain , no joint swelling, no extremity edema. Skin: No rash, no itching. Neuro: No headache, no dizziness, no weakness Psych: (+) anxiety, (+) depression, (+) schizophrenia Vital Signs Vital Signs Date Time Temp Pulse Resp B/P (MAP) Pulse Ox O2 Delivery O2 Flow Rate FiO2 11/18/24 04:15 96 24 135/100 (112) 96 11/18/24 03:12 98.0 98.0 11/18/24 03:00 Room Air* 0 21 Physical Exam General: Awake, alert and oriented. No acute distress. Skin: Skin in warm, dry and intact. Appropriate color for ethnicity. Nailbeds pink with no cyanosis. HEENT: The head is normocephalic and atraumatic. Conjunctivae are clear without exudates or hemorrhage. Sclera is non-icteric. EOM are intact. No signs of nystagmus. Eyelids are normal in appearance without swelling or lesions. Oral mucosa is pink and moist Neck: The neck is supple with normal range of motion. No JVD. Cardiac: Heart rate and rhythm are normal. No murmurs, gallops, or rubs are auscultated. Respiratory: No signs of respiratory distress. Lung sounds are clear in all lobes bilaterally without rales, ronchi, or wheezes. Abdominal: Abdomen is soft, non-tender without distention. Bowel sounds are present and normoactive in all four quadrants. Extremities: Upper and lower extremities are atraumatic in appearance without deformity or edema. Neurological: The patient is awake, alert and oriented to person, place, and time with normal speech. Speech is clear. There is no facial asymmetry. Past Medical History PAST MEDICAL HISTORY: Anxiety, Depression, Schizophrenia Surgical History: Pt Confused Family History Family History: Pt Confused Social History Smoker: Cigarettes, Less Than 1 Pack/Day Alcohol: Heavy Drugs: Marijuana, Methamphetamine Lives In: Homeless Was a procedure done? Was a procedure done?: No Psych Differential Dx Psych. Differential Dx: Anxiety, Depression, Schizoprenia OD Differential Dx: Alcohol Abuse, Schizophrenia, Substance Abuse X-Ray, Labs, Meds, VS Vital Signs Date Time Temp Pulse Resp B/P (MAP) Pulse Ox O2 Delivery O2 Flow Rate FiO2 11/18/24 04:15 96 24 135/100 (112) 96 11/18/24 03:12 98.0 97 20 168/110 (129) 95 98.0 11/18/24 03:00 Room Air* 0 21 11/18/24 02:42 97.8 92 18 151/102 (118) 100 Lab Test 11/18/24 03:35 Range/Units White Blood Count 9.4 # 4.4-10.8 10^3/uL Red Blood Count 4.75 4.5-5.90 10^6/uL Hemoglobin 15.0 13.5-17.5 g/dL Hematocrit 43.5 # 41.0-53.0 % Mean Corpuscular Volume 91.5 80.0-100.0 fL Mean Corpuscular Hemoglobin 31.7 28.0-32.0 pg Mean Corpuscular Hemoglobin Concent 34.6 32.0-36.0 g/dL Red Cell Distribution Width 12.9 11.8-14.3 % Platelet Count 299 140-450 10^3/uL Mean Platelet Volume 8.2 6.9-10.8 fL Neutrophils (%) (Auto) 71.0 37.0-80.0 % Lymphocytes (%) (Auto) 20.9 10.0-50.0 % Monocytes (%) (Auto) 7.2 0.0-12.0 % Eosinophils (%) (Auto) 0.2 0.0-7.0 % Basophils (%) (Auto) 0.7 0.0-2.0 % Neutrophils # (Auto) 6.7 1.6-8.6 10 ^3/uL Lymphocytes # (Auto) 2.0 0.4-5.4 10 ^3/uL Monocytes # (Auto) 0.7 0-1.3 10 ^3/uL Eosinophils # (Auto) 0 0-0.8 10 ^3/uL Basophils # (Auto) 0.1 0-0.2 10 ^3/uL Nucleated Red Blood Cells 0.1 % Sodium Level 139 136-145 mmol/L Potassium Level 3.7 3.5-5.1 mmol/L Chloride Level 103 98-107 mmol/L Carbon Dioxide Level 25 20-31 mmol/L Anion Gap 11 5-15 Blood Urea Nitrogen 18 9-23 mg/dL Creatinine 1.55 H 0.700-1.30 mg/dL Glomerular Filtration Rate Calc 60 >90 mL/min BUN/Creatinine Ratio 11.6 10.0-20.0 Serum Glucose 88 74-106 mg/dL Calcium Level 10.9 H 8.7-10.4 mg/dL Total Bilirubin 1.2 H 0.2-1.0 mg/dL Aspartate Amino Transferase (AST) 30 13-40 U/L Alanine Aminotransferase (ALT) 21 7-40 U/L Alkaline Phosphatase 83 46-116 U/L Total Protein 8.3 H 5.7-8.2 g/dL Albumin 5.4 H 3.2-4.8 g/dL Plasma/Serum Blood Alcohol < 3.0 <10 mg/dL Current Medications Medications (Trade) Dose Ordered Sig/[place] Route Start Time Stop Time Status Last Admin Quetiapine Fumarate (SEROquel TABLET) 100 mg ONCE ONCE PO 11/18/24 03:30 11/18/24 03:31 DC 11/18/24 03:36 Buspirone HCl (Buspar Tablet) 15 mg ONCE ONCE PO 11/18/24 03:30 11/18/24 03:31 DC 11/18/24 03:37 Time of 1ST Reevaluation: 03:15 Reevaluation 1ST: Unchanged Patient Education/Counseling: Diagnosis, Treatment Family Education/Counseling: No Family Present Departure 1 Departure Time of Disposition: 04:16 Impression: Primary Impression: Bipolar disorder Additional Impression: Schizophrenia Disposition: 30 STILL A PATIENT Condition: Stable Comments 34-year-old male with history of PTSD, anxiety, bipolar and schizophrenia who presents for psychiatric evaluation. He was seen by Dr. Simental who recommended starting Seroquel and buspirone, voluntary hold for inpatient psychiatric admission. Signed out to oncoming provider pending placement. Critical Care Note Critical Care Time?: No Stability Stability form required: No Heart Score Heart Score: Heart Score Response (Comments) Value History N/A 0 EKG N/A 0 Age N/A 0 Risk Factors N/A 0 Troponin N/A 0 Total 0 I personally scribed for WILLIAM DUMONT MD ([email or web address]) on 11/18/24 at 03:22. Electronically submitted by Maciel De La Paz ([employer]). I personally scribed for WILLIAM DUMONT MD ([email or web address]) on 11/18/24 at 03:22. Electronically submitted by Maciel De La Paz ([email or web address]). WILLIAM DUMONT MD Nov 18, 2024 03:22
[2024-11-18] MEDS: QUEtiapine FUMARATE 100 MG TAB PO ONE (03:36)
[2024-11-18] MEDS: busPIRone HCL 10 MG TAB PO ONE (03:37)
[2024-11-18 04:02] LABS: Basophils # (auto) 0.1 10 ^3/uL (0-0.2); Basophils % (auto) 0.7 % (0.0-2.0); Eosinophils # (auto) 0 10 ^3/uL (0-0.8); Eosinophils % (auto) 0.2 % (0.0-7.0); Hematocrit 43.5 % (41.0-53.0); Lymphocytes % (auto) 20.9 % (10.0-50.0); Mean Corpuscular Hemoglobin 31.7 pg (28.0-32.0); Mean Corpuscular Hgb Conc. 34.6 g/dL (32.0-36.0); Mean Corpuscular Volume 91.5 fL (80.0-100.0); Monocytes # (auto) 0.7 10 ^3/uL (0-1.3); Monocytes % (auto) 7.2 % (0.0-12.0); Neutrophils # (auto) 6.7 10 ^3/uL (1.6-8.6); Nucleated Red Blood Cells % 0.1 %; Platelet Count (auto) 299 10^3/uL (140-450); Red Blood Cells 4.75 10^6/uL (4.5-5.90); Red Cell Distribution Width 12.9 % (11.8-14.3); White Blood Cell 9.4 10^3/uL (4.4-10.8)
--- NOTE | 2024-11-18 04:09 | DVHINCON2 ---
Date of Service if different f: Nov 18, 2024 Time of Service: 04:00 Consult Consult Note PSYCHIATRY ED NEW CONSULT HPI: 34 yo M pt with PPH of schizophrenia and polysubstance use presents to ED BIBA for safety, psychiatric stabilization and possible med initiation/optimization in setting of med noncompliance, and psychosis. Psychiatry consulted for safety evaluation and recommendations in context of current presentation Per pt, reports he has not had any access to his psychiatric meds as he claims parent has been withholding his meds from him hence has been feeling confused and disoriented, sitting/rocking back/forth in middle of street. Pt also adds "i got lost in the wilderness" and "i feel like Alvarado Pickett". Pt p/w moderate thought disorder, confusion, thought blocking, disorganized speech, disorganized TP, RTIS, impaired reality testing, anxiety, possible decline in self care, NC/NT AVH. Pt poor historian and appears to have baseline thought disorder in setting of SPMI dx. denies SI/HI. Pt currently does not have psychiatrist/therapist out in community although has sought outpt MH services in past. Currently rx'd Quetiapine 200 mg bid and Buspar 15 mg bid but recent/hx of med noncompliance issues Social History: He is currently homeless, unemployed. He is single with no child [place], some contact with mother. reports recent [facility] for 8 months and released last month Reports long hx of meth, marijuana and opiate use. He reports unintentional fentanyl overdose in Oct 2023. Continues to use marijuana and meth, a few times per week. Denies IVDU. Denies any known family history of mental health problems. Past Psychiatric History : He reports about 7-8 prior psychiatric admissions. denies prior suicide attempts. PMH: seizures MSE: General Appearance/Behavior: Alert and partially awake; appears older than stated age, marginal grooming and hygiene; calm and cooperative, poor eye co ntact, no PMA/PMR Speech: incoherent/mumbling at times Thought Process: limited/impoverished Thought Content: Abnormal Thoughts and Perceptions: None Homicidality / Violent Thoughts: None Suicidality: denies SI Hallucinations: +AH Delusions: denies paranoia, persecutory, or grandiose delusions Obsessions /compulsions : None Judgment and Insight: marginal/limited Mood & Affect: "tired" with mood-congruent, confused, appropriate Orientation: oriented to person, place only Attention/Concentration: appears intact Memory: grossly intact Language: no unusual or inappropriate language Assessment: 34 yo M pt with PPH of schizophrenia and polysubstance use presents to ED BIBA for safety, psychiatric stabilization and possible med initiation/optimization in setting of med noncompliance, and psychosis Pt p/w moderate thought disorder, confusion, thought blocking, disorganized sp eech, disorganized TP, RTIS, impaired reality testing, possible decline in self care, NC/NT AVH. Pt poor historian and appears to have baseline thought disorder in setting of SPMI dx. Not compliant on psychotropics which maybe contributing to current symptoms. No outpt MH services at present. Pt medically cleared, pt does have seizure d/o hx Pt may benefit from inpatient psychiatric admission for safety, psychiatric stabilization and possible medication initiation/optimization. Pt willing to transfer to inpt psych hospitalization voluntarily Primary Diagnosis: Schizophrenia unspecified. Meth/THC use disorder, moderate. R/o SIPD Recommend VOL transfer to inpt psych facility for higher level of care per pts request 1:1 sitter is not recommended Recommend continuation of outpt med regimen - quetiapine 150 mg bid and Buspar 15 mg bid Risks/benefits/alternative treatments discussed, informed consent provided by pt If patient later refuses voluntary hospitalization/ requests to be discharged from ED prior to transfer, pt DOES NOT need reassessment/ 5150 hold evaluation. Rather, consider SW consultation for housing resources and MH resources prior to d/c Pt verbalized understanding and is receptive to above tx plan This case was discussed with ED nurse/provider and all parties in agreement with above tx plan Brodie Ramirez MD Plan discussed with: Patient BRODIE RAMIREZ MD Nov 18, 2024 04:09
[2024-11-18 04:13] LABS: Alanine Aminotransferase 21 U/L (7-40); Alkaline Phosphatase 83 U/L (46-116); Anion Gap 11 (5-15); Aspartate Aminotransferase 30 U/L (13-40); BUN/Creatinine Ratio 11.6 (10.0-20.0); Blood Urea Nitrogen 18 mg/dL (9-23); Carbon Dioxide 25 mmol/L (20-31); Chloride 103 mmol/L (98-107); Glucose 88 mg/dL (74-106); Potassium 3.7 mmol/L (3.5-5.1); Sodium 139 mmol/L (136-145)
[2024-11-18 04:14] LABS: Bilirubin, Total 1.2 mg/dL (0.2-1.0)
[2024-11-18 04:20] LABS: Albumin 5.4 g/dL (3.2-4.8); Calcium 10.9 mg/dL (8.7-10.4); Total Protein 8.3 g/dL (5.7-8.2)
[2024-11-18 04:34] LABS: Blood Alcohol < 3.0 mg/dL (<10)
[2024-11-18 08:00] VITALS: PULSE 96; RESP 19; O2SAT 97
[2024-11-18 09:56] LABS: Urine Bacteria MOD /hpf (None Seen); Urine Blood Negative /uL (Negative); Urine Clarity Turbid (Clear); Urine Color Yellow (Yellow); Urine Hyaline Cast MOD /lpf (0 - 2); Urine Mucus FEW (None Seen); Urine Protein, UAD 1+ (Negative); Urine Specific Gravity 1.033 (1.001-1.035); Urine Sperm PRESENT /hpf (None Seen); Urine Squamous Epithelial Cell FEW /hpf (<5); Urine Urobilinogen Normal (Negative); Urine WBC 6 /HPF (0-3); Urine pH 5.5 (5.0-9.0)
[2024-11-18 09:59] LABS: Benzodiazephine Screen, Urine Pos (NEGATIVE); Cannabinoid Screen, Urine Pos (NEGATIVE)
[2024-11-18] MEDS: QUEtiapine FUMARATE 100 MG TAB PO SCH (10:02)
[2024-11-18] MEDS: busPIRone HCL 10 MG TAB PO SCH (10:02)
[2024-11-18 10:12] LABS: Amphetamine Screen, Urine Pos (NEGATIVE); Barbiturate Scree,Urine Neg (NEGATIVE); Cocaine Screen, Urine Neg (NEGATIVE); Opiate Scree,Urine Neg (NEGATIVE); Phencyclidine Screen, Urine Neg (NEGATIVE)
[2024-11-18 11:56] VITALS: BP 132/69; PULSE 94; RESP 17; TEMP 98.4; O2SAT 100
== END 2024-11-18 12:09 | disposition short-term general hospital (02) ==
LOC: EDBD 02:38 → ER 02:38 → EDUNIT# 02:38 → ER 12:09
DX: F31.9 Bipolar disorder, unspecified (principal); F20.9 Schizophrenia, unspecified; F41.9 Anxiety disorder, unspecified; F12.20 Cannabis dependence, uncomplicated; F17.210 Nicotine dependence, cigarettes, uncomplicated; G40.909 Epilepsy, unspecified, not intractable, without status epilepticus; Z79.899 Other long term (current) drug therapy
CPT/HCPCS: 36415; 80053; 80307; 80320; 81001; 85025

== ENCOUNTER 2024-12-16 19:14 | Emergency (ER) | payer MEDICAID ==
[~2024-12-16] VITALS: Ht 175.3 cm; Wt 92.8 kg
[2024-12-16 19:35] VITALS: BP 163/108; PULSE 101; RESP 18; TEMP 98; O2SAT 95
== END 2024-12-16 21:06 | disposition left against medical advice (07) ==
LOC: ER 19:14
DX: M54.2 Cervicalgia (principal); Z53.21 Procedure and treatment not carried out due to patient leaving prior to being seen by health care provider